=== PATIENT | male | born 1960 | race Caucasian/White ===

== ENCOUNTER 2024-01-19 08:54 | Outpatient (RCR) | payer MEDICARE, BC, SELFPAY | END 2024-01-19 10:00 | disposition home or self-care (01) | PROVIDERS: Visit Provider Orthopaedic Surgery | DX: M17.11 Unilateral primary osteoarthritis, right knee (principal); Z96.651 Presence of right artificial knee joint; M25.561 Pain in right knee; Z74.09 Other reduced mobility; R29.898 Other symptoms and signs involving the musculoskeletal system; Z51.89 Encounter for other specified aftercare | CPT/HCPCS: 97161; 97535 ==

== ENCOUNTER 2024-02-02 09:27 | Day surgery (SDC) | payer MEDICARE, BC, SELFPAY ==
[2024-02-02] VITALS (24 sets, daily range): BP systolic 122–197; BP diastolic 63–103; PULSE 39–63; RESP 14–16; TEMP 35.1–36.6; O2SAT 91–99; BMI 34.7
--- OUTSIDE RECORDS SUMMARY | 2024-02-02 09:31 | XMS_ITS | Clinical Summary ---
Author Name Unknown Organization [facility] Address [address] [place] [address] Care Team Providers Care Skiver Hand Name Role Phone Chintan Chandler M.D. Primary Care Provider [phone] Source Comments Patient records contain information from all sites at [facility]. For routine questions regarding patient records, call [phone] during business hours, M-F 8:00 AM - 5:00 PM Central Time. Record requests for emergency care only can be directed to [phone] at any time.[facility] Allergies No known active allergies Medications Medication Sig Dispensed Refills Start Date End Date Status co-enzyme Q-10 (for_CO Q-10) 100 mg capsule Take 1 capsule by mouth daily. 0 01/21/2017 Active CYANOCOBALAMIN, VITAMIN B-12, ORAL Take 1 tablet by mouth daily. 0 07/16/2016 Active multivitamin tablet Take 1 tablet by mouth daily. [address] Active aspirin [address] tablet Take 1 tablet (81 mg total) by mouth daily. as directed 120 tablet 3 07/11/2020 Active nitroglycerin (NITROSTAT) 0.4 mg SL tabletIndications: Atherosclerotic Heart Disease Of [place] Coronary Artery Without Angina Pectoris As needed 25 tablet 3 10/16/2020 Active blood-glucose meter,continuous (Dexcom G6 News Videographer) miscIndications:Di abetes Mellitus Type 2 With Other Circulatory Complication (HCC) Test 4 times daily. 1 each 0 12/22/2022 Active ketoconazole (NIZORAL) 2 % cream APPLY TWICE DAILY 60 g 3 01/21/2023 Active insulin aspart U-100 (NovoLOG U-100 Insulin aspart) 100 unit/mL injectionIndicatio ns:Diabetes Mellitus Type 2 (HCC) ADJUST DOSING NEEDED-- UP TO 100 UNITS/ DAY 100 mL 3 10/30/2023 Active Additional Information Patient not taking.Reported on 01/01/2024 atorvastatin (LIPITOR) 80 mg tabletIndications: 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) Take 1 tablet (80 mg total) by mouth at bedtime. 90 tablet 3 10/30/2023 Active apixaban (Eliquis) 5 mg tabletIndications: Stroke (HCC) Take 1 tablet (5 mg total) by mouth 2 (two) times a day. 180 tablet 3 10/30/2023 Active isosorbide mononitrate (IMDUR) 30 mg 24 hr tabletIndications: Atherosclerotic Heart Disease Of [place] Coronary Artery Without Angina Pectoris Take 1 tablet (30 mg total) by mouth daily. 90 tablet 3 10/30/2023 Active losartan (COZAAR) 25 mg tabletIndications: Hypertensive Heart Disease Without Heart Failure Take 1 tablet (25 mg total) by mouth daily. 90 tablet 3 10/30/2023 Active metoprolol succinate (TOPROL-XL) 25 mg 24 hr tabletIndications: Hypertension Essential Primary Take 1 tablet (25 mg total) by mouth daily. Do not crush or chew tablet. 90 tablet 3 10/30/2023 Active blood-glucose transmitter (Dexcom G6 Transmitter) deviceIndications: 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) Test 4 times daily. 1 each 10/30/2023 Active insulin lispro (HumaLOG U-100 Insulin) 100 unit/mL injection Per insulin Pump 100 mL 10/30/2023 Active blood-glucose sensor (Dexcom G6 Sensor) deviceIndications: 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) CHANGE SENSOR EVERY 10 DAYS 9 each 3 01/07/2024 Active blood-glucose sensor (Dexcom G6 Sensor) deviceIndications: 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) CHANGE SENSOR EVERY 10 DAYS 9 each 10/30/2023 Discontinue d(Reorder) Active Problems Problem Noted Date Diagnosed Date Arthroplasty Total Knee Replacement Status Post Left 09/30/2022 Primary Osteoarthritis Knee Right 09/30/2022 Atrial Fibrillation Paroxysmal 11/26/2021 Stenosis Carotid Artery Right 05/13/2021 Diabetes Mellitus Type 2 Wit h Other Circulatory Complication 03/08/2019 Injury Ulnar Nerve Upper Arm Level Right Sequela 01/19/2019 Bypass Coronary Artery Graft Status Post 019 Overview: 12/28/18 CABG (CONROY-LAD, JUDE-OM, SVG-PDA) Atherosclerotic Heart Diseas e Of [place] Coronary Artery Without Angina Pectoris 09/18/2017 Coronary Stent Status Post 11/15/2014 Hypertensive Heart Disease Without Heart Failure 09/30/2013 Overview: HTN [Hypertension] Hyperlipidemia 11/09/2009 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 Blood Pressure Check 01/07/2024 Refill Department of [facility] in [address] [address] Chintan Chandler M.D. Med Refill (Dexcom G6) 01/07/2024 Clinical Communication Department of [facility] in [address] [address] Chintan Chandler M.D. Hypertension 01/05/2024 Orders Only Department of [facility] in [address] [address] Chintan Chandler M.D. 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) (Primary Dx) 01/01/2024 1:00 PM PAYROLL ASSISTANT Office Visit Department of Family [facility] in [address] [address] Chintan Chandler M.D. 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); Atrial Fibrillation Paroxysmal (HCC); Atherosclerotic Heart Disease Of [place] Coronary Artery Without Angina Pectoris; Primary Osteoarthritis Knee Right; Diabetes Mellitus Type 2 (HCC); Hypertensive Heart Disease Without Heart Failure from Last 3 Months Immunizations Name Administration Dates Next Due H1N1 Inj 09/24/2009 HepB, Unspecified 05/13/2021(Deferred: Patient R efused) Influenza high dose QV(65 ye ars or older) (PF) 10/30/2023 Influenza, Unspecified 09/08/2014,09/28/2013 PCV20 09/30/2022 PPSV23(Discontinued) 02/15/2013 RZV (SHINGRIX) 05/13/2021(Deferred: Patient Ref used) SARS-COV-2 (COVID-19) - MODE RNA (12 YEARS AND OLDER) [id number] 10/30/2023 SARS-COV-2 (COVID-19) - MODERNA(Discontinued) 02/01/2021,01/04/2021 SARS-COV-2 (COVID-19) - PFIZ ER BIVALENT TS(Discontinued)(12 YEARS OR OLDER) 09/30/2022 Td (Adult), adsorbed 02/08/2007,08/24/2006 Td Preservative Free (TENIVA C, DECAVAC) 12/13/2019 Tdap 09/07/2023,04/09/2007 Zoster, Unspecified 05/13/2021(Deferred: Other) influenza vaccine quad (FLUZONE/FLUARIX) (6 months and older)(PF) 09/16/2022,11/26/2021,09/14/2020,2018,11/01/2018 Family History Medical History Relation Name Comments Coronary artery bypass grafting Brother Tru Heart failure Brother Tru No Known Problems Daughter 1 No Known Problems Daughter 2 No Known Problems Daughter 3 No Known Problems Daughter 4 No Known Problems Daughter 5 No Known Problems Daughter 6 No Known Problems Daughter 7 Diabetes Father Cancer Mother uterine Diabetes Paternal Grandmother Cancer Sister 1 alpesh No Known Problems Sister 2 No Known Problems Sister 3 No Known Problems Son Relation Name Status Comments Brother Tru Alive Daughter 1 Alive Daughter 2 Alive Daughter 3 Alive Daughter 4 Alive Daughter 5 Alive Daughter 6 Alive Daughter 7 Alive Father Mother Paternal Grandmother Sister 1 alpesh Alive Sister 2 Alive Sister 3 Alive Son Alive Social History Tobacco Use Types Packs/Day Years Used Date Smoking Tobacco: Never Smokeless Tobacco: Never Tobacco Cessation:Counseling Given: Yes Alcohol Use Standard Drinks/Week Comments Not Currently 0 (1 standard drink = 0.6 oz pur e alcohol) rare [facility] Utilities Answer Date Recorded In the past 12 months has e [employer], [employer], oil, or water [employer] threatened to shut off services in your home? No 12/28/2023 Humiliation, Afraid, Rape, and Kick questionnair e Answer Date Recorded Within the last year, have y ou been afraid of your partner or ex-partner? No 11/13/2022 Within the last year, have y ou been humiliated or emotionally abused in other ways by your partner or ex-partner? No Within the last year, have y ou been kicked, hit, slapped, or otherwise physically hurt by your partner or ex-partner? No 11/13/2022 Within the last year, have y ou been raped or forced to have any kind of sexual activity by your partner or ex-partner? No 11/13/2022 Social Connection and Isolat ion Panel [NHANES] Answer Date Recorded In a typical week, how many times do you talk on the phone with family, friends, or neighbors? More than three times a week 11/13/2022 How often do you get togethe r with friends or relatives? Twice a week 11/13/2022 How often do you attend chur or sikhism services? 1 to 4 times per year 11/13/2022 Do you belong to any clubs o r organizations such as restorationist groups, unions, fraternal or athletic groups, or school groups? No 11/13/2022 How often do you attend meet ings of the clubs or organizations you belong to? Never 11/13/2022 Are you , , di vorced, , never , or living with a partner? 11/13/2022 AUDIT-C Answer Date Recorded Q1: How often do you have a drink containing alc ohol? Monthly or less 11/13/2022 Q2: How many drinks containi ng alcohol do you have on a typical day when you are drinking? 1 or 2 11/13/2022 Q3: How often do you have si x or more drinks on one occasion? Never 11/13/2022 Overall Financial Resource Strain (CARDIA) Answe r Date Recorded How hard is it for you to pa y for the very basics like food, housing, medical care, and heating? Not hard at all 11/13/2022 PHQ-2 Answer Date Recorded PHQ-2 Score 0 01/01/2024 [facility] of Occupat ional [facility] - Occupational Stress Questionnaire Answer Date Recorded Do you feel stress - tense, restless, nervous, or anxious, or unable to sleep at night because your mind is troubled all the time - these days? Not at all 11/13/2022 Exercise Vital Sign Answer Date Recorde d On average, how many days pe r week do you engage in moderate to strenuous exercise (like a brisk walk)? 3 days 12/28/2023 On average, how many minutes do you engage in exercise at this level? 20 min 12/28/2023 Hunger Vital Sign Answer Date Recorded Within the past 12 months, y ou worried that your food would run out before you got the money to buy more. Never true 12/28/19 24 Within the past 12 months, t he food you bought just didn't last and you didn't have money to get more. Never true 12/28/2023 PRAPARE - Transportation Answer Date Re corded In the past 12 months, has l ack of transportation kept you from medical appointments or from getting medications? No 01/2024 In the past 12 months, has l ack of transportation kept you from meetings, work, or from getting things needed for daily living? No 12/28/2023 Nutrition Answer Date Recorded Nutrition: EVOO Fat Source Yes 12/27 On average, how many serving s of fruits and vegetables do you eat per day (serving size is equal to 1 cup or approximately the size of a tennis ball)? 0-2 12/28/2023 Dental Answer Date Recorded Dental: Regular Dentist Yes 11/13/19 23 Employment Answer Date Recorded Employment status Employed and actively working without restrictions 12/28/2023 Housing Stability Answer Date Recorded What is your living situation today? I have a [facility] place to live 12/28/2023 Education Answer Date Recorded What is the highest level of school you have completed or the highest degree you have received? Associate degree: occupational, technical, or vocational program 10/12/2020 Sex and Gender Information Value Date Recorded Sex Assigned at Male 09/15/2017 7:45 AM PAYROLL ASSISTANT Gender Identity Male 09/15/2017 7:45 AM PAYROLL ASSISTANT Sexual Orientation Straight 09/15/2017 7: 45 AM PAYROLL ASSISTANT Last Filed Vital Signs Vital Sign Reading Time Taken Comments Blood Pressure 142/58 01/07/2024 10:26 AM CDT manual check Pulse 54 01/07/2024 10:26 AM CDT Temperature 36.4 ??C (97.5 ??F) 01/01/2024 1:02 PM CS T Respiratory Rate 16 09/07/2023 4:59 PM PAYROLL ASSISTANT Oxygen Saturation 99% 01/01/2024 1:02 PM PAYROLL ASSISTANT Inhaled Oxygen Concentration - - Weight 113 kg (250 lb) 01/01/2024 1:02 PM PAYROLL ASSISTANT Height 180.3 cm (5' 10.98) 01/01/2024 1:[address] Body Mass Index 34.88 01/01/2024 1:02 PM PAYROLL ASSISTANT Plan of Treatment Upcoming Encounters Date Type Department Care Team (Late st Contact Info) Description 04/06/2024 8:30 AM CDT Appointment Department of Laboratory Medicine in [place], [place] [address] [place] [address] Chintan Chandler M.D. [address] [place] [address] Health Maintenance Due Date Last Done Comments CT Colonography 1958 FIT 1960 HIV Screening 1960 Hepatitis C Screening 1960 Zoster Vaccines (1 of 2) 2008 Diabetes Education 04/08/2017 10/28/2013 Hepatitis B Vaccines (1 of 3 - Risk 3-dose series) 2018 Colonoscopy 2021 2011 Dilated Eye Exam 05/01/2022 05/01/2021 (Per formed elsewhere), 06/09/2020 (Performed elsewhere), 08/01/2019 (Performed elsewhere), Additional history exists Diabetic Office Visit with F oot Exam 09/30/2023 09/30/2022, 05/13/2021, 11/23/2018, Additional history exists Office Visit for Blood Press ure Check / Re-check 04/08/2024 01/07/2024 Urine Albumin 04/15/2024 04/15/2023, 03/27, 05/10/2021, Additional history exists Hemoglobin A1C 07/03/2024 01/01/2024, 010 12/2023, 04/22/2023, Additional history exists Cologuard 12/18/2024 12/18/2021, 12/10/2021 Colorectal Cancer Screening 12/18/2024 Creatinine Level (Kidney Fun ction Test) 12/31/2024 01/01/2024, 04/15/2023, 04/15/2022, Additional history exists Potassium Level 12/31/2024 01/01/2024, 03/27, 04/15/2022, Additional history exists Sodium Level 12/31/2024 01/01/2024, 03/27, 04/15/2022, Additional history exists Visit: Chronic Disease, age 18+ 12/31/2024 , 01/01/2024 Lipid (Cholesterol) Screening 12/31/2028, 05/10/2021, 12/13/2019, Additional history exists DTaP,Tdap,and Td Vaccines (4 - Td or Tdap) 09/07/2033 09/07/2023, 12/13/2019, 04/09/2007, Additional history exists Pneumococcal vaccine (65+ years) Completed 09/30/20, 02/15/2013 COVID-19 Vaccine Completed 10/30/2023, 03/2022, 10/01/2021, Additional history exists Influenza Vaccine Completed 10/30/2023, , 11/26/2021, Additional history exists Depression Screening (Annual PHQ-2) Completed 01/01/2024, 01/01/2024 Fall Risk Screen (Annual) Completed 01/01/2024 Medical Devices Implanted Type Area Security Systems Administrator Device Identifier Shelf Expiration Date Model / Serial / Lot Cardiac Stent Cardiac Stent Heart Cbl Cls Zipfix Tss Strnl Ndl - [id number] Implanted:Qty : 1 on 12/28/2018 by Deepak Almonte M.D. at [facility] Hardware e.g. pins/screws/ rods Sternum Depuy Synthes 08.501.00 1.20S / / Cbl Cls Zipfix Tss Strnl Ndl - [id number] Implanted:Qty : 1 on 12/28/2018 by eDepak Almonte M.D. at [facility] Hardware e.g. pins/screws/ rods Sternum Depuy Synthes 08.501.00 1.20S / / Cbl Cls Zipfix Tss Strnl Ndl - [id number] Implanted:Qty : 1 on 12/28/2018 by Deepak Almonte M.D. at [facility] Hardware e.g. pins/screws/ rods Sternum Depuy Synthes 08.501.00 1.20S / / Ocular Lens Ocular Lens Bilateral: Eye Procedures Procedure Name Priority Date/Time Associated Diagnosis Comments CBC WITH DIFFERENTIAL, B Routine 024 2:25 PM PAYROLL ASSISTANT Preoperative Exam Atherosclerotic Heart Disease Of [place] Coronary Artery Without Angina Pectoris ECG Routine 01/01/2024 1:57 PM PAYROLL ASSISTANT Preoperative Exam LIPID PANEL, S Routine 01/01/2024 1:46 PM PAYROLL ASSISTANT 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) Atherosclerotic Heart Disease Of [place] Coronary Artery Without Angina Pectoris ALANINE AMINOTRANSFERASE (ALT), S/P Routine 01/01/2024 1:46 PM PAYROLL ASSISTANT Atherosclerotic Heart Disease Of [place] Coronary Artery Without Angina Pectoris BASIC METABOLIC PANEL, S/P Routine 01/01/2024 1:46 PM PAYROLL ASSISTANT Preoperative Exam Atrial Fibrillation Paroxysmal (HCC) Atherosclerotic Heart Disease Of [place] Coronary Artery Without Angina Pectoris HEMOGLOBIN A1C, B Routine 01/01/2024 1:4 6 PM PAYROLL ASSISTANT 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) from Last 3 Months Results * (ABNORMAL) CBC with Differential, Blood (01/01/2024 2:25 PM PAYROLL ASSISTANT) Hemoglobin 14.3 13.2 - 16.6 g/dL 01/01/2024 7:13 PM PAYROLL ASSISTANT NPRG Hematocrit 43.1 38.3 - 48.6 % 01/01/2024 7:13 PM PAYROLL ASSISTANT NPRG Erythrocytes 4.98 4.35 - 5.65 x10(12)/L 01/01/2024 7:13 PM PAYROLL ASSISTANT NPRG MCV 86.5 78.2 - 97.9 fL 01/01/2024 7:13 PM PAYROLL ASSISTANT NPRG RBC Distrib Width 13.9 11.8 - 14.5 % 01/01/2024 7:13 PM PAYROLL ASSISTANT NPRG Platelet Count 231 135 - 317 x10(9)/L 01/01/2024 7:13 PM PAYROLL ASSISTANT NPRG Leukocytes 5.4 3.4 - 9.6 x10(9)/L 01/01/2024 7:13 PM PAYROLL ASSISTANT NPRG Neutrophils 3.94 1.56 - 6.45 x10(9)/L 01/01/2024 7:13 PM PAYROLL ASSISTANT NPRG Lymphocytes 0.75(L) 0.95 - 3.07 x10(9)/L 01/01/2024 7:13 PM PAYROLL ASSISTANT NPRG Monocytes 0.52 0.26 - 0.81 x10(9)/L 01/01/2024 7:13 PM PAYROLL ASSISTANT NPRG Eosinophils 0.11 0.03 - 0.48 x10(9)/L 01/01/2024 7:13 PM PAYROLL ASSISTANT NPRG Basophils 0.04 0.01 - 0.08 x10(9)/L 01/01/2024 7:13 PM PAYROLL ASSISTANT NPRG Blood (Blood, Venous) 01/01/2024 2:25 PM PAYROLL ASSISTANT 01/01/2024 6:49 PM PAYROLL ASSISTANT Chintan Chandler M.D. LAB BLOOD ADD-ON [facility] [address] [place] [address], [facility] NPRG [facility] [address] [place] [address] * ECG 12 Lead (01/01/2024 1:57 PM PAYROLL ASSISTANT) Ventricular Rate ECG/Min 57 BPM MUSE WV Interval 186 ms MUSE QRSD Interval 94 ms MUSE QT Interval 422 ms MUSE QTC Interval 410 ms MUSE P Mathis 24 degrees MUSE R Mathis -42 degrees MUSE T Wave Mathis 45 degrees MUSE 01/01/2024 1:57 PM PAYROLL ASSISTANT 01/01/2024 2:00 PM PAYROLL ASSISTANT Impressions MUSE - 01/01/2024 2:00 PM PAYROLL ASSISTANT Sinus bradycardia with sinus arrhythmia Premature ventricular complexes Left axis deviation When compared with ECG of 13-DEC-2019 09:19, Premature ventricular complexes are now present Reviewed by XOCHILT Escalante Narrative Procedure Note Dre Low M.B.BRosangelaS. - 01/01/2024 IMPRESSION: Sinus bradycardia with sinus arrhythmia Premature ventricular complexes Left axis deviation When compared with ECG of 13-DEC-2019 09:19, Premature ventricular complexes are now present Reviewed by XOCHILT Escalante Chintan Chandler M.D. ECG ORDERABLES MUSE NA * Lipid Panel (01/01/2024 1:46 PM PAYROLL ASSISTANT) Triglycerides 148 mg/dL 01/01/2024 7:23 PM PAYROLL ASSISTANT NPRG Comment: ----REFERENCE VALUE---- Normal: <150 mg/dL Borderline High: 150-199 mg/dL High: 200-499 mg/dL Very High: > or =500 mg/dL Cholesterol, Total 128 mg/dL 2023 7:23 PM PAYROLL ASSISTANT NPRG Comment: ----REFERENCE VALUE---- Desirable: < 200 mg/dL Borderline High: 200 - 239 mg/dL High: > or = 240 mg/dL Cholesterol, LDL, Calculated 61 mg/dL 01/01/2024 7:23 PM PAYROLL ASSISTANT NPRG Comment: ----REFERENCE VALUE---- Desirable: <100 mg/dL Above Desirable: 100-129 mg/dL Borderline High: 130-159 mg/dL High: 160-189 mg/dL Very High: >=190 mg/dL ----ADDITIONAL INFORMATION---- LDL cholesterol calculated using the Bryant/NIH equation. Cholesterol, HDL 41 >=40 mg/dL 01/01/20 7:23 PM PAYROLL ASSISTANT NPRG Cholesterol, Non-HDL, Calculated 87 mg/dL 01/01/2024 7:23 PM PAYROLL ASSISTANT NPRG Comment: ----REFERENCE VALUE---- Desirable: <130 mg/dL Above Desirable: 130-159 mg/dL Borderline High: 160-189 mg/dL High: 190-219 mg/dL Very High: > or =220 mg/dL Fasting (8 HR or more) No 01/01/2024 6:48 PM PAYROLL ASSISTANT NPRG Blood (Blood, Venous) 01/01/2024 1:46 PM PAYROLL ASSISTANT 01/01/2024 6:48 PM PAYROLL ASSISTANT Chintan Chandler M.D. LAB BLOOD ADD-ON [facility] [address] [place] [address], [facility] NPRG [place] [address] [place] [address] * ALT (Alanine Aminotransferase) (01/01/2024 1:46 PM PAYROLL ASSISTANT) [facility] Alanine Aminotransferase (ALT), P 21 7 - 55 U/L 01/01/2024 7:23 PM PAYROLL ASSISTANT NPRG Blood (Blood, Venous) 01/01/2024 1:46 PM PAYROLL ASSISTANT 01/01/2024 6:48 PM PAYROLL ASSISTANT Chintan Chandler M.D. LAB BLOOD ADD-ON [facility] [address] [place] [address], [facility] NPRG [place] [address] [place] [address] * (ABNORMAL) Hemoglobin A1c (01/01/2024 1:46 PM PAYROLL ASSISTANT) Hemoglobin A1c, B 6.6(H) 4.2 - 5.6 % 01/01/2024 7:27 PM PAYROLL ASSISTANT NPRG Comment: Hemoglobin A1c values greater than or equal to 6.5 percent are diagnostic for diabetes mellitus. ??Diagnosis should be confirmed by repeat testing. ??In diabetic patients, HbA1c goals should be discussed with healthcare provider. Blood (Blood, Venous) 01/01/2024 1:46 PM PAYROLL ASSISTANT 01/01/2024 6:48 PM PAYROLL ASSISTANT Chintan Chandler M.D. LAB BLOOD ADD-ON [facility] [address] [place] [address], [place] NPRG [facility] [address] [place] [address] * (ABNORMAL) Basic Metabolic Panel (01/01/2024 1:46 PM PAYROLL ASSISTANT) Potassium, P 4.8 3.6 - 5.2 mmol/L 01/01/2024 7:23 PM PAYROLL ASSISTANT NPRG Sodium, P 139 135 - 145 mmol/L 01/01/2024 7:23 PM PAYROLL ASSISTANT NPRG Chloride, P 104 98 - 107 mmol/L 01/01/2024 7:23 PM PAYROLL ASSISTANT NPRG Bicarbonate, P 25 22 - 29 mmol/L 01/01/2024 7:23 PM PAYROLL ASSISTANT NPRG Anion Gap, P 10 7 - 15 01/01/2024 7:23 PM PAYROLL ASSISTANT NPRG BUN (Blood Urea Nitrogen), P 20 8 - 24 mg/dL 01/01/2024 7:23 PM PAYROLL ASSISTANT NPRG Creatinine 1.21 0.74 - 1.35 mg/dL 01/01/2024 7:23 PM PAYROLL ASSISTANT NPRG Estimated GFR (eGFR) 66 >=60 mL/min/BSA 01/01/2024 7:23 PM PAYROLL ASSISTANT NPRG Comment: Estimated GFR calculated using the 2020 CKD_EPI creatinine equation. Calcium, Total, P 9.0 8.8 - 10.2 mg/dL 01/01/2024 7:23 PM PAYROLL ASSISTANT NPRG Glucose, P 188(H) 70 - 140 mg/dL 01/01/2024 7:23 PM PAYROLL ASSISTANT NPRG Blood (Blood, Venous) 01/01/2024 1:46 PM PAYROLL ASSISTANT 01/01/2024 6:48 PM PAYROLL ASSISTANT Chintan Chandler M.D. LAB BLOOD ADD-ON [facility] [address] [place] [address], [place] NPRG [facility] [address] [place] [address] from Last 3 Months Advance Directives For more information, please contact: [phone] * Full Code (Latest Code Status on File) Date Activated Date Inactivated Comments 01/18/2019 1:03 AM 01/19/2019 3:29 PM Question Answer Comments Full Code: Discussed * Full Code Date Activated Date Inactivated Comments 12/28/2018 6:05 PM 01/04/2019 1:14 PM Question Answer Comments Full Code: Discussed * Full Code Date Activated Date Inactivated Comments 12/01/2018 9:58 AM 12/01/2018 1:51 PM Question Answer Comments Full Code: Discussed Care Teams Skiver Hand Relationship Specialty Start Date End Date Chintan Chandler M.D. [address] [place] [address] PCP - General 04/24/17
--- OUTSIDE RECORDS SUMMARY | 2024-02-02 09:31 | XMS_ITS | Encounter Summary ---
Author Name Unknown Organization [facility] Address [address] [place] [address] Care Team Providers Care Oil Deliverer Name Role Phone Chintan Chandler M.D. Primary Care Provider [phone] Reason for Visit * Reason Onset Date Comments Hypertension 01/07/2024 Encounter Details Date Type Department Care Team (Late st Contact Info) Description 01/07/2024 Clinical Communication Department of Family Medicine in [place], [place] [address] [place] [phone] Chintan Chandler M.D. [address] [place] [phone] Hypertension Social History Tobacco Use Types Packs/Day Years Used Date Smoking Tobacco: Never Smokeless Tobacco: Never Alcohol Use Standard Drinks/Week Comments Not Currently 0 (1 standard drink = 0.6 oz pur e alcohol) rare [facility] Utilities Answer Date Recorded In the past 12 months has e [employer], gas, oil, or water [employer] threatened to shut off services in your [...] 11/13/2022 How often do you attend chur ch or mosque services? 1 to 4 times per year 11/13/2022 Do you belong to any clubs o r organizations such as bahai groups, unions, fraternal or athletic groups, or [...] Answer Date Recorded PHQ-2 Score 0 01/01/2024 [facility] [place] of Occupat ional Health - Occupational Stress Questionnaire Answer Date Recorded [...] money to buy more. Never true 12/28/19 Within the past 12 months, t he [...] Date Recorded Dental: Regular Dentist Yes 11/13/19 Employment Answer Date Recorded Employment status Employed and actively working without restrictions 12/28/2023 Housing Stability Answer Date Recorded What is your living situation today? I have a [facility] place to live 12/28/2023 Education Answer Date Recorded What is the highest level of school you have completed or the highest degree you have received? Associate degree: occupational, technical, or vocational program 10/12/2020 Sex and Gender Information Value Date Recorded Sex Assigned at Male 09/15/2017 7:45 AM MANAGER DOCUMENT CONTROL Gender Identity Male 09/15/2017 7:45 AM MANAGER DOCUMENT CONTROL Sexual Orientation Straight 09/15/2017 7: 45 AM MANAGER DOCUMENT CONTROL documented as of this encounter Miscellaneous Notes * Telephone Encounter - Jeanine Dias R.N. - 01/07/2024 10:31 AM CDT R: Any recommendations to blood pressure or upcoming surgery based on BP today of 142/58 as well asECG results? Does have appointment 01/19/24 S: BP check for f/u on pre-op exam B: BP Readings from Last 3 Encounters: 01/07/24 142/58 01/01/24 153/80 10/30/23 135/62 BP Goal <140/90 Currently taking: Losartan 25mg daily Metoprolol XL 25mg daily Denies SE or HTN related symptoms or concerns. A: Patient had preop done on 01/01/24 for elective right TKA surgery scheduled for 02/02/24. Reports he was advised to recheck BP in clinic. Patient would also like PCP to review ECG results and advise if any concerns. Jeanine Dias RN documented in this encounter Plan of Treatment Upcoming Encounters Date Type Department Care Team (Late st Contact Info) Description 04/06/2024 8:30 AM CDT Appointment Department of Laboratory Medicine in [place] [address] [place] [address] Chintan Chandler M.D. [address] [place] [facility] [place] [phone] documented as of this encounter Visit Diagnoses Not on filedocumented in this encounter Care Teams Oil Deliverer Relationship Specialty Start Date End Date Chintan Chandler M.D. [address] [place] [phone] PCP - General 04/24/17 documented as of this encounter
--- OUTSIDE RECORDS SUMMARY | 2024-02-02 09:31 | XMS_ITS | Encounter Summary ---
Author Name Unknown Organization [facility] Address [address] [place] [address] Care Team Providers Care Cancer Program Director Name Role Phone Chintan Chandler M.D. Primary Care Provider [phone] Reason for Visit * Reason Comments Med Refill Dexcom G6 Encounter Details Date Type Department Care Team (Late st Contact Info) Description 01/07/2024 Refill Department of Family Medicine in [place], [place] [address] [place] [phone] Chintan Chandler M.D. [address] [place] [phone] Med Refill (Dexcom G6) Social History Tobacco Use Types Packs/Day Years Used Date Smoking Tobacco: Never Smokeless Tobacco: Never Alcohol Use Standard Drinks/Week Comments Not Currently 0 (1 standard drink = 0.6 oz pur e alcohol) rare [facility] Utilities Answer Date Recorded In the past 12 months has e [employer], gas, oil, or water [employer] threatened to shut off services in your [...] often do you attend chur ch or muslim services? 1 to 4 times per year 11/13/2022 Do you belong to any clubs o r organizations such as latter day groups, unions, fraternal or athletic groups, or [...] Answer Date Recorded PHQ-2 Score 0 01/01/2024 [facility] of Occupat ional Health - Occupational Stress [...] your living situation today? I have a [facility] place to live 12/28/2023 Education Answer Date Recorded What is the highest level of school you have completed or the highest degree you have received? Associate degree: occupational, technical, or vocational program 10/12/2020 Sex and Gender Information Value Date Recorded Sex Assigned at Male 09/15/2017 7:45 AM WOMEN'S ACTIVITIES ADVISER Gender Identity Male 09/15/2017 7:45 AM WOMEN'S ACTIVITIES ADVISER Sexual Orientation Straight 09/15/2017 7: 45 AM WOMEN'S ACTIVITIES ADVISER documented as of this encounter Miscellaneous Notes * Telephone Encounter - Jeanine Dias, R.N. - 01/07/2024 10:58 AM CDT R: Would you like to send Dexcom G6 to medical supply per request? S: Requesting blood glucose sensor be resent to [facility] B: Dexcom last sent to pharmacy on 10/30/23 for a quantity of 9, 3 refills A: Patient states [facility] needs a new script sent over. Jeanine Dias RN documented in this encounter Plan of Treatment Upcoming Encounters Date Type Department Care Team (Late st Contact Info) Description 04/06/2024 8:30 AM CDT Appointment Department of Laboratory Medicine in [place], [place] [address] [place] [address] Chintan Chandler M.D. 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 [address] [place] [phone] PCP - General 04/24/17 documented as of this encounter
--- OUTSIDE RECORDS SUMMARY | 2024-02-02 09:31 | XMS_ITS | Referral Summary ---
Author Name Unknown Organization [facility] Address [address] [place] [address] Care Team Providers Care Thickener Operator Name Role Phone Chintan Chandler M.D. Primary Care Provider [phone] Source Comments Patient records contain information from all sites at [facility]. For routine questions regarding patient records, call [phone] during business hours, M-F 8:00 AM - 5:00 PM Central Time. Record requests for emergency care only can be directed to [phone] at any time.[facility] Encounters Date Type Department Care Team Description 01/07/2024 Refill Department of Family Medicine in [place], [place] [address] [place] [phone] Chintan Chandler M.D. Med Refill (Dexcom G6) 01/07/2024 Clinical Communication Department of Family Medicine in [place], [place] [address] [place] [phone] Chintan Chandler M.D. Hypertension 01/07/2024 10:15 AM CDT Nurse Only Department of Family Medicine in [place], [place] [address] [place] [phone] Jeanine Dias, REmily Blood Pressure Check 01/05/2024 Orders Only Department of Family Medicine in [place], [place] [address] [place] [phone] Ramesh, Chintan J, M.D. 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); Atrial Fibrillation Paroxysmal (HCC); Atherosclerotic Heart Disease Of [place] Coronary Artery Without Angina Pectoris; Primary Osteoarthritis Knee Right; Diabetes Mellitus Type 2 (HCC); Hypertensive Heart Disease Without Heart Failure from Last 3 Months Allergies No known active allergies Medications Medication [...] mg SL tabletIndications: Atherosclerotic Heart Disease Of [place] Coronary Artery Without Angina Pectoris As needed 25 tablet 3 10/16/2020 Active blood-glucose meter,continuous (Dexcom G6 Engine Test Cell Technician) miscIndications:Di abetes Mellitus Type 2 With Other [...] 24 hr tabletIndications: Atherosclerotic Heart Disease Of [place] Coronary Artery Without Angina Pectoris Take 1 [...] (HCC) Test 4 times daily. 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) CHANGE SENSOR EVERY 10 DAYS 9 each 3 10/30/2023 4 Discontinue d(Reorder) Active Problems Problem Noted Date [...] JUDE-OM, SVG-PDA) Atherosclerotic Heart Diseas e Of [place] Coronary Artery Without Angina Pectoris 09/18/2017 Coronary Stent Status Post 11/15/2014 Hypertensive Heart Disease Without Heart Failure 09/30/2013 Overview: HTN [Hypertension] Hyperlipidemia 11/09/2009 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 Resolved Problems Problem Noted Date Diagnosed Date Resolved Date Stroke 01/17/2019 12/13/2019 Failure Renal Acute Toxic 01/12/2019 Injury Brain Initial 11/09/2009 020 Overview: Traumatic brain injury Immunizations Name Administration Dates Next Due H1N1 Inj 09/24/2009 HepB, Unspecified 05/13/2021(Deferred: Patient R efused) Influenza high dose QV(65 ye ars or older) (PF) 10/30/2023 Influenza, Unspecified 09/08/2014,09/28/2013 PCV20 09/30/2022 PPSV23(Discontinued) 02/15/2013 RZV (SHINGRIX) 05/13/2021(Deferred: Patient Ref used) SARS-COV-2 (COVID-19) - MODE RNA (12 YEARS AND OLDER) [id number] 10/30/2023 SARS-COV-2 (COVID-19) - MODERNA(Discontinued) 02/01/2021,01/04/2021 SARS-COV-2 (COVID-19) - PFIZ ER BIVALENT TS(Discontinued)(12 YEARS OR OLDER) 09/30/2022 Td (Adult), adsorbed 02/08/2007,08/24/2006 Td Preservative Free (TENIVA C, DECAVAC) 12/13/2019 Tdap 09/07/2023,04/09/2007 Zoster, Unspecified 05/13/2021(Deferred: Other) influenza vaccine quad (FLUZONE/FLUARIX) (6 months and older)(PF) 09/16/2022,11/26/2021,09/14/2020,2018,11/01/2018 Social History Tobacco Use Types Packs/Day Years Used Date Smoking Tobacco: Never Smokeless Tobacco: Never Tobacco Cessation:Counseling Given: Yes Alcohol Use Standard Drinks/Week Comments Not Currently 0 (1 standard drink = 0.6 oz pur e alcohol) rare [facility] Utilities Answer Date Recorded In the past 12 months has e [employer], gas, oil, or water company threatened to shut off services in your [...] week 11/13/2022 How often do you attend [facility] or [facility] services? 1 to 4 times per year 11/13/2022 Do you belong to any clubs o r organizations such as mosque groups, unions, fraternal or athletic groups, or [...] Answer Date Recorded PHQ-2 Score 0 01/01/2024 [facility] [place] of Occupat ional Health - Occupational Stress [...] your living situation today? I have a [facility] place to live 12/28/2023 Education Answer Date Recorded What is the highest level of school you have completed or the highest degree you have received? Associate degree: occupational, technical, or vocational program 10/12/2020 Sex and Gender Information Value Date Recorded Sex Assigned at Male 09/15/2017 7:45 AM DAIRY QUALITY ASSURANCE OFFICER Gender Identity Male 09/15/2017 7:45 AM DAIRY QUALITY ASSURANCE OFFICER Sexual Orientation Straight 09/15/2017 7: 45 AM DAIRY QUALITY ASSURANCE OFFICER Last Filed Vital Signs Vital Sign Reading Time Taken Comments Blood Pressure 142/58 01/07/2024 10:26 AM CDT manual check Pulse 54 01/07/2024 10:26 AM CDT Temperature 36.4 ??C (97.5 ??F) 01/01/2024 1:02 PM CS T Respiratory Rate 16 09/07/2023 4:59 PM DAIRY QUALITY ASSURANCE OFFICER Oxygen Saturation 99% 01/01/2024 1:02 PM DAIRY QUALITY ASSURANCE OFFICER Inhaled Oxygen Concentration - - Weight 113 kg (250 lb) 01/01/2024 1:02 PM DAIRY QUALITY ASSURANCE OFFICER Height 180.3 cm (5' 10.98) 01/01/2024 1:[address] Body Mass Index 34.88 01/01/2024 1:02 PM DAIRY QUALITY ASSURANCE OFFICER Plan of Treatment Upcoming Encounters Date Type Department Care Team (Late st Contact Info) Description 04/06/2024 8:30 AM CDT Appointment Department of Laboratory Medicine in [place], [place] [address] [place] [address] Chintan Chandler M.D. [address] [place] [phone] Medical Devices Implanted Type Area Poultry Tender Device Identifier Shelf Expiration Date Model / Serial / Lot Cardiac Stent Cardiac Stent Heart Cbl Cls Zipfix Tss Strnl Ndl - [id number] Implanted:Qty : 1 on 12/28/2018 by Deepak Almonte M.D. at [facility] Hardware e.g. pins/screws/ rods Sternum Depuy Synthes 1.20S / / Cbl Cls Zipfix Tss Strnl Ndl - [id number] Implanted:Qty : 1 on 12/28/2018 by Deepak Almonte M.D. at [facility] Hardware e.g. pins/screws/ rods Sternum Depuy Synthes 1.20S / / Cbl Cls Zipfix Tss Strnl Ndl - [id number] Implanted:Qty : 1 on 12/28/2018 by Deepak Almonte M.D. at [facility] Hardware e.g. 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 ALANINE AMINOTRANSFERASE (ALT), S/P Routine 01/01/2024 1:46 PM DAIRY QUALITY ASSURANCE OFFICER Atherosclerotic Heart Disease Of [place] Coronary Artery Without Angina Pectoris BASIC METABOLIC PANEL, S/P Routine 01/01/2024 1:46 PM DAIRY QUALITY ASSURANCE OFFICER Preoperative Exam Atrial Fibrillation Paroxysmal (HCC) Atherosclerotic Heart Disease Of [place] Coronary Artery Without Angina Pectoris HEMOGLOBIN A1C, B Routine 01/01/2024 1:4 6 PM DAIRY QUALITY ASSURANCE OFFICER 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) from Last 3 Months Results * (ABNORMAL) CBC with Differential, Blood (01/01/2024 2:25 PM DAIRY QUALITY ASSURANCE OFFICER) Pathologist [facility] Hemoglobin 14.3 13.2 - 16.6 g/dL 01/01/2024 7:13 PM DAIRY QUALITY ASSURANCE OFFICER NPRG Hematocrit 43.1 38.3 - 48.6 % 01/01/2024 7:13 PM DAIRY QUALITY ASSURANCE OFFICER NPRG Erythrocytes 4.98 4.35 - 5.65 x10(12)/L 01/01/2024 7:13 PM DAIRY QUALITY ASSURANCE OFFICER NPRG MCV 86.5 78.2 - 97.9 fL 01/01/2024 7:13 PM DAIRY QUALITY ASSURANCE OFFICER NPRG RBC Distrib Width 13.9 11.8 - 14.5 % 01/01/2024 7:13 PM DAIRY QUALITY ASSURANCE OFFICER NPRG Platelet Count 231 135 - 317 x10(9)/L 01/01/2024 7:13 PM DAIRY QUALITY ASSURANCE OFFICER NPRG Leukocytes 5.4 3.4 - 9.6 x10(9)/L 01/01/2024 7:13 PM DAIRY QUALITY ASSURANCE OFFICER NPRG Neutrophils 3.94 1.56 - 6.45 x10(9)/L 01/01/2024 7:13 PM DAIRY QUALITY ASSURANCE OFFICER NPRG Lymphocytes 0.75(L) 0.95 - 3.07 x10(9)/L 01/01/2024 7:13 PM DAIRY QUALITY ASSURANCE OFFICER NPRG Monocytes 0.52 0.26 - 0.81 x10(9)/L 01/01/2024 7:13 PM DAIRY QUALITY ASSURANCE OFFICER NPRG Eosinophils 0.11 0.03 - 0.48 x10(9)/L 01/01/2024 7:13 PM DAIRY QUALITY ASSURANCE OFFICER NPRG Basophils 0.04 0.01 - 0.08 x10(9)/L 01/01/2024 7:13 PM DAIRY QUALITY ASSURANCE OFFICER NPRG Blood (Blood, Venous) 01/01/2024 2:25 PM DAIRY QUALITY ASSURANCE OFFICER 01/01/2024 6:49 PM DAIRY QUALITY ASSURANCE OFFICER Chintan Chandler M.D. LAB BLOOD ADD-ON [facility] [address] [place] [address], [facility] NPRG [facility] [address] [place] [address] * ECG 12 Lead (01/01/2024 1:57 PM DAIRY QUALITY ASSURANCE OFFICER) Ventricular Rate ECG/Min 57 BPM MUSE DE Interval 186 ms MUSE QRSD Interval 94 ms MUSE QT Interval 422 ms MUSE QTC Interval 410 ms MUSE P [place] 24 degrees MUSE R [place] -42 degrees MUSE T Wave [place] 45 degrees MUSE 01/01/2024 1:57 PM DAIRY QUALITY ASSURANCE OFFICER 01/01/2024 2:00 PM DAIRY QUALITY ASSURANCE OFFICER Impressions MUSE - 01/01/2024 2:00 PM DAIRY QUALITY ASSURANCE OFFICER Sinus bradycardia with sinus arrhythmia Premature ventricular complexes Left axis deviation When compared with ECG of 13-DEC-2019 09:19, Premature ventricular complexes are now present Reviewed by XOCHILT Escalante Narrative Procedure Note Dre Low M.B.B.SRosangela - 01/01/2024 IMPRESSION: Sinus bradycardia with sinus arrhythmia Premature ventricular complexes Left axis deviation When compared with ECG of 13-DEC-2019 09:19, Premature ventricular complexes are now present Reviewed by XOCHILT Escalante Chintan Chandler M.D. ECG ORDERABLES MUSE NA * Lipid Panel (01/01/2024 1:46 PM DAIRY QUALITY ASSURANCE OFFICER) Triglycerides 148 mg/dL 01/01/2024 7:23 PM DAIRY QUALITY ASSURANCE OFFICER NPRG Comment: ----REFERENCE VALUE---- Normal: <150 mg/dL Borderline High: 150-199 mg/dL High: 200-499 mg/dL Very High: > or =500 mg/dL Cholesterol, Total 128 mg/dL 2023 7:23 PM DAIRY QUALITY ASSURANCE OFFICER NPRG Comment: ----REFERENCE VALUE---- Desirable: < 200 mg/dL Borderline High: 200 - 239 mg/dL High: > or = 240 mg/dL Cholesterol, LDL, Calculated 61 mg/dL 01/01/2024 7:23 PM DAIRY QUALITY ASSURANCE OFFICER NPRG Comment: ----REFERENCE VALUE---- Desirable: <100 mg/dL Above Desirable: 100-129 mg/dL Borderline High: 130-159 mg/dL High: 160-189 mg/dL Very High: >=190 mg/dL ----ADDITIONAL INFORMATION---- LDL cholesterol calculated using the Bryant/NIH equation. Cholesterol, HDL 41 >=40 mg/dL 01/01/20 7:23 PM DAIRY QUALITY ASSURANCE OFFICER NPRG Cholesterol, Non-HDL, Calculated 87 mg/dL 01/01/2024 7:23 PM DAIRY QUALITY ASSURANCE OFFICER NPRG Comment: ----REFERENCE VALUE---- Desirable: <130 mg/dL Above Desirable: 130-159 mg/dL Borderline High: 160-189 mg/dL High: 190-219 mg/dL Very High: > or =220 mg/dL Fasting (8 HR or more) No 01/01/2024 6:48 PM DAIRY QUALITY ASSURANCE OFFICER NPRG Blood (Blood, Venous) 01/01/2024 1:46 PM DAIRY QUALITY ASSURANCE OFFICER 01/01/2024 6:48 PM DAIRY QUALITY ASSURANCE OFFICER Chintan Chandler M.D. LAB BLOOD ADD-ON [facility] [address] [place] [address], [facility] NPRG [place] [address] [place] [address] * ALT (Alanine Aminotransferase) (01/01/2024 1:46 PM DAIRY QUALITY ASSURANCE OFFICER) Alanine Aminotransferase (ALT), P 21 7 - 55 U/L 01/01/2024 7:23 PM DAIRY QUALITY ASSURANCE OFFICER NPRG Blood (Blood, Venous) 01/01/2024 1:46 PM DAIRY QUALITY ASSURANCE OFFICER 01/01/2024 6:48 PM DAIRY QUALITY ASSURANCE OFFICER Chintan Chandler M.D. LAB BLOOD ADD-ON [facility] [address] [place] [address], [facility] NPRG [address] [address] * (ABNORMAL) Hemoglobin A1c (01/01/2024 1:46 PM DAIRY QUALITY ASSURANCE OFFICER) Hemoglobin A1c, B 6.6(H) 4.2 - 5.6 % 01/01/2024 7:27 PM DAIRY QUALITY ASSURANCE OFFICER NPRG Comment: Hemoglobin A1c values greater than or equal to 6.5 percent are diagnostic for diabetes mellitus. ??Diagnosis should be confirmed by repeat testing. ??In diabetic patients, HbA1c goals should be discussed with healthcare provider. Blood (Blood, Venous) 01/01/2024 1:46 PM DAIRY QUALITY ASSURANCE OFFICER 01/01/2024 6:48 PM DAIRY QUALITY ASSURANCE OFFICER Chintan Chandler M.D. LAB BLOOD ADD-ON [facility] [address] [place] [address], [facility] NPRG [place] [address] [place] [address] * (ABNORMAL) Basic Metabolic Panel (01/01/2024 1:46 PM DAIRY QUALITY ASSURANCE OFFICER) Potassium, P 4.8 3.6 - 5.2 mmol/L 01/01/2024 7:23 PM DAIRY QUALITY ASSURANCE OFFICER NPRG Sodium, P 139 135 - 145 mmol/L 01/01/2024 7:23 PM DAIRY QUALITY ASSURANCE OFFICER NPRG Chloride, P 104 98 - 107 mmol/L 01/01/2024 7:23 PM DAIRY QUALITY ASSURANCE OFFICER NPRG Bicarbonate, P 25 22 - 29 mmol/L 01/01/2024 7:23 PM DAIRY QUALITY ASSURANCE OFFICER NPRG Anion Gap, P 10 7 - 15 01/01/2024 7:23 PM DAIRY QUALITY ASSURANCE OFFICER NPRG BUN (Blood Urea Nitrogen), P 20 8 - 24 mg/dL 01/01/2024 7:23 PM DAIRY QUALITY ASSURANCE OFFICER NPRG Creatinine 1.21 0.74 - 1.35 mg/dL 01/01/2024 7:23 PM DAIRY QUALITY ASSURANCE OFFICER NPRG Estimated GFR (eGFR) 66 >=60 mL/min/BSA 01/01/2024 7:23 PM DAIRY QUALITY ASSURANCE OFFICER NPRG Comment: Estimated GFR calculated using the 2020 CKD_EPI creatinine equation. Calcium, Total, P 9.0 8.8 - 10.2 mg/dL 01/01/2024 7:23 PM DAIRY QUALITY ASSURANCE OFFICER NPRG Glucose, P 188(H) 70 - 140 mg/dL 01/01/2024 7:23 PM DAIRY QUALITY ASSURANCE OFFICER NPRG Blood (Blood, Venous) 01/01/2024 1:46 PM DAIRY QUALITY ASSURANCE OFFICER 01/01/2024 6:48 PM DAIRY QUALITY ASSURANCE OFFICER Chintan Chandler M.D. LAB BLOOD ADD-ON [facility] [address] [place] [address], [facility] NPRG [facility] [address] [place] [address] from Last 3 Months Advance Directives For more information, please contact: [phone] * Full Code (Latest Code Status on [...] Answer Comments Full Code: Discussed Care Teams Thickener Operator Relationship Specialty Start Date End Date Chintan Chandler [place] [address] PCP - General 04/24/17
--- OUTSIDE RECORDS SUMMARY | 2024-02-02 09:31 | XMS_ITS | Encounter Summary ---
Author Name Unknown Organization [facility] Address [address] [place] [address] Care Team Providers Care Pain Management Physician Name Role Phone Chintan Chandler M.D. Primary Care Provider [phone] Reason for Visit * Reason Comments Blood Pressure Check Encounter Details Date Type Department Care Team (Late st Contact Info) Description 01/07/2024 10:15 AM CDT Nurse Only Department of Family Medicine in [place], [place] [address] [place] [phone] Jeanine Dias, R.N. Blood Pressure Check Social History Tobacco Use Types Packs/Day Years Used Date Smoking Tobacco: Never Smokeless Tobacco: Never Alcohol Use Standard Drinks/Week Comments Not Currently 0 (1 standard drink = 0.6 oz pur e alcohol) rare [facility] Utilities Answer Date Recorded In the past 12 months has [facility] [employer], gas, oil, or water [employer] threatened to shut off services in your [...] week 11/13/2022 How often do you attend [facility] or sabianist services? 1 to 4 times per year 11/13/2022 Do you belong to any clubs o r organizations such as samaritan groups, unions, fraternal or athletic groups, or [...] Answer Date Recorded PHQ-2 Score 0 01/01/2024 [facility] [place] of Occupat ional Health - Occupational Stress [...] your living situation today? I have a [facility] place to live 12/28/2023 Education Answer Date Recorded What is the highest level of school you have completed or the highest degree you have received? Associate degree: occupational, technical, or vocational program 10/12/2020 Sex and Gender Information Value Date Recorded Sex Assigned at Male 09/15/2017 7:45 AM NURSE MONITORING Gender Identity Male 09/15/2017 7:45 AM NURSE MONITORING Sexual Orientation Straight 09/15/2017 7: 45 AM NURSE MONITORING documented as of this encounter Last Filed Vital Signs Vital Sign Reading Time Taken Comments Blood Pressure 142/58 01/07/2024 10:26 AM CDT ma nual check Pulse 54 01/07/2024 10:26 AM CDT Temperature - - Respiratory Rate - - Oxygen Saturation - - Inhaled Oxygen Concentration - - Weight - - Height - - Body Mass Index - - documented in this encounter Progress Notes * Jeanine Dias, R.N. - 01/07/2024 10:15 AM CDT REASON FOR VISIT Raman is seen today for a BP check after BP was elevated on OV on 01/01/24 wit PCP, walk in blood pressure check. Visit was conducted in clinic. OBJECTIVE After sitting for 10 minutes, blood pressure was measured and recorded. The patient's blood pressure(s) and pulse from this visit encounter: Vitals: 01/07/24 1026 BP: 142/58 Comment: manual check BP Location: Left arm Patient Position: Sitting Cuff Size: Large Pulse: (!) 54 The patient's last 3 blood pressures from previous 3 encounters: BP Readings from Last 3 Encounters: 01/07/24 142/58 01/01/24 153/80 10/30/23 135/62 Pulse Readings from Last 3 Encounters: 01/07/24 (!) 54 01/01/24 (!) 55 10/30/23 (!) 56 Patient's blood pressure goal is less than 140/90. Current antihypertensives are: Anti-Hypertensives losartan (COZAAR) 25 mg tablet Take 1 tablet (25 mg total) by mouth daily. metoprolol succinate (TOPROL-XL) 25 mg 24 hr tablet Take 1 tablet (25 mg total) by mouth daily. Do not crush or chew tablet. Medication list was reviewed and patient is taking their blood pressure medication as prescribed and denies side effects. PLAN 1. Message sent to provider with update of blood pressure result from today's visit. Has surgery scheduled for 02/02/24 and needs the OK to proceed with surgery as planned. Next appointment in this department: 01/19/2024 Jeanine Dias RN documented in this encounter Plan of Treatment Upcoming Encounters Date Type Department Care Team (Late st Contact Info) Description 04/06/2024 8:30 AM CDT Appointment Department of Laboratory Medicine in [place], [place] [address] [place] [address] Chintan Chandler M.D. [address] [place] [phone] documented as of this encounter Visit Diagnoses Not on filedocumented in this encounter Care Teams Pain Management Physician Relationship Specialty Start Date End Date Chintan Chandler M.D. [address] [place] [phone] PCP - General 04/24/17 documented as of this encounter
--- OUTSIDE RECORDS SUMMARY | 2024-02-02 09:31 | XMS_ITS ---
Author Name Unknown Organization [facility] Address [address] [place] [address] Care Team Providers Care Trapeze Performer Name Role Phone Unavailable Unavailable Unavailable Surgery Details Not on file Complications Check Surgery Details section. Procedure Estimated Blood Loss Check Surgery Details section. Procedure Findings Check Surgery Details section. Procedure Specimens Taken Check Surgery Details section.
--- OUTSIDE RECORDS SUMMARY | 2024-02-02 09:32 | XMS_ITS | Encounter Summary ---
Author Name Unknown Organization [facility] Address [address] [place] [address] Care Team Providers Care Pasting Machine Operator Name Role Phone Chintan Chandler M.D. Primary Care Provider [phone] Encounter Details Date Type Department Care Team (Late st Contact Info) Description 01/05/2024 Orders Only Department of Family Medicine in [place], [place] [address] [place] [phone] Chintan Chandler M.D. 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 1 to 4 times per year 11/13/2022 Do you belong to any clubs o r organizations such as yazdanism groups, unions, fraternal or athletic groups, or [...] Answer Date Recorded PHQ-2 Score 0 01/01/2024 [facility] of Occupat ional Health - Occupational Stress [...] your living situation today? I have a [facility] place to live 12/28/2023 Education Answer Date Recorded What is the highest level of school you have completed or the highest degree you have received? Associate degree: occupational, technical, or vocational program 10/12/2020 Sex and Gender Information Value Date Recorded Sex Assigned at Male 09/15/2017 7:45 AM ORACLE ENDECA CONSULTANT Gender Identity Male 09/15/2017 7:45 AM ORACLE ENDECA CONSULTANT Sexual Orientation Straight 09/15/2017 7: 45 AM ORACLE ENDECA CONSULTANT documented as of this encounter Plan of Treatment Upcoming Encounters Date Type Department Care Team (Late st Contact Info) Description 04/06/2024 8:30 AM CDT Appointment Department of Laboratory Medicine in [place], [place] [address] [place] [phone] Chintan Chandler M.D. [address] [place] [phone] Scheduled Orders Name Type Priority Associated Diagnoses Orde r Schedule Hemoglobin A1c Lab Routine 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) Expected: 04/06/2024 (Approximate), Expires: 01/04/2025 documented as of this encounter Visit Diagnoses Diagnosis 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)- Primary documented in this encounter Care Teams Pasting Machine Operator Relationship Specialty Start Date End Date Chintan Chandler M.D. [address] [place] [phone] PCP - General 04/24/17 documented as of this encounter
--- OUTSIDE RECORDS SUMMARY | 2024-02-02 09:32 | XMS_ITS | Encounter Summary ---
Author Name Unknown Organization [facility] Address [address] [place] [address] Care Team Providers Care Local Superintendent Name Role Phone Chintan Chandler M.D. Primary Care Provider [phone] Reason for Visit * Reason Comments Diabetes * Appointment Request (Routine) - Closed Specialty Diagnoses / Procedures Referred By Contac t Referred To Contact Family Medicine Referral ID Status Reason Start Date Expiration Date Visits Re quested Visits Authorized [id number] Closed 10/23/2023 10/22/2024 1 1 Encounter Details Date Type Department Care Team (Late st Contact Info) Description 10/30/2023 2:00 PM RUG MEASURER Office Visit Department of Family Medicine in [place], [place] [address] [place] [address] Chintan Chandler M.D. 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 1 to 4 times per year 11/13/2022 Do you belong to any clubs o r organizations such as spiritism groups, unions, fraternal or athletic groups, or [...] PHQ-2 Answer Date Recorded PHQ-2 Score 0 01/20/2023 [facility] of Occupat ional Health - Occupational [...] exercise (like a brisk walk)? 3 days 11/13/2022 On average, how many minutes do you engage in exercise at this level? 20 min 11/13/2022 Hunger Vital Sign Answer Date Recorded Within the past 12 months, y ou worried that your food would run out before you got the money to buy more. Never true 11/13/19 Within the past 12 months, t he food you bought just didn't last and you didn't have money to get more. Never true 11/13/2022 PRAPARE - Transportation Answer Date Re corded In the past 12 months, has l ack of transportation kept you from medical appointments or from getting medications? No 10/26 In the past 12 months, has l ack of transportation kept you from meetings, work, or from getting things needed for daily living? No 11/13/2022 Housing Stability Vital Sign Answer Mehdi e Recorded In the last 12 months, was t here a time when you were not able to pay the mortgage or rent on time? No 11/13/2022 In the last 12 months, how many places have you lived? 1 11/13/2022 In the last 12 months, was t here a time when you did not have a steady place to sleep or slept in a retirement (including now)? No 11/13/2022 Nutrition Answer Date Recorded Nutrition: EVOO Fat Source Yes 11/13 On average, how many serving s of fruits and vegetables do you eat per day (serving size is equal to 1 cup or approximately the size of a tennis ball)? 2-3 11/13/2022 Dental Answer Date Recorded Dental: Regular Dentist Yes 11/13/19 Employment Answer Date Recorded Employment status Employed and actively working without restrictions 11/13/2022 Education Answer Date Recorded What is the highest level of school you have completed or the highest degree you have received? Associate degree: occupational, technical, or vocational program 10/12/2020 Sex and Gender Information Value Date Recorded Sex Assigned at Male 09/15/2017 7:45 AM RUG MEASURER Gender Identity Male 09/15/2017 7:45 AM RUG MEASURER Sexual Orientation Straight 09/15/2017 7: 45 AM RUG MEASURER documented as of this encounter Last Filed Vital Signs Vital Sign Reading Time Taken Comments Blood Pressure 135/62 10/30/2023 1:46 PM RUG MEASURER Pulse 56 10/30/2023 1:46 PM RUG MEASURER Temperature 36.2 ??C (97.1 ??F) 10/30/2023 1:46 PM CS T Respiratory Rate - - Oxygen Saturation 99% 10/30/2023 1:46 PM RUG MEASURER Inhaled Oxygen Concentration - - Weight 111 kg (244 lb) 10/30/2023 1:46 PM RUG MEASURER Height 180.3 cm (5' 10.98) 10/30/2023 1:[address] Body Mass Index 34.05 10/30/2023 1:46 PM RUG MEASURER documented in this encounter Progress Notes * Chintan Chandler M.D. - 10/30/2023 2:00 PM CST SUBJECTIVE CHIEF COMPLAINT/REASON FOR VISIT Chief Complaint Patient presents with Diabetes HISTORY OF PRESENT ILLNESS Raman Adame is a 63 y.o. male who presents for a routine diabetes recheck. No major changes in health noted since his last exam. He reports good tolerance for all current medications. The following portions of the patient's history were reviewed: allergies, medical history, current medications and problem list REVIEW OF SYSTEMS All other systems are negative. OBJECTIVE VITAL SIGNS BP 135/62 (Cuff Size: Large) Pulse (!) 56 Temp 36.2 ??C (Temporal) Ht 180.3 cm Wt 111 kg SpO2 99% BMI 34.05 kg/m?? PHYSICAL EXAMINATION General: Alert, in no apparent distress, nontoxic appearing. Mood and affect were appropriate to the situation. HEENT: No pallor or icterus. Conjunctivae and sclerae clear without redness or drainage. Heart: Regular rate and rhythm. Lungs: Respirations were regular, nonlabored. Skin: [place], warm, dry and intact with no rashes noted. DIAGNOSTICS Lab Results Component Value Date HGBA1C 6.8 (H) 10/28/2023 HGBA1C 6.3 (H) 04/22/2023 HGBA1C 6.6 (H) 12/30/2022 Lab Results Component Value Date GLUCOSE 196 (H) 04/15/2023 GLUCOSEPOC 131 01/19/2019 ALBCREARATIO 53 (H) 04/15/2023 LDLCALC 58 05/10/2021 CREATININE 1.10 04/15/2023 CREATPOC 1.1 05/18/2019 CREATJAFFE 1.5 (H) 01/01/2019 ASSESSMENT / PLAN 1. Diabetes Mellitus Type 2 (HCC) Excellent diabetes control on current program. Plan to continue with routine 3 month A1C recheck. Also at next check he will need routine labs to include BMP, ALT and lipid profile. - insulin aspart U-100 (NovoLOG U-100 Insulin aspart) 100 unit/mL injection; ADJUST DOSING NEEDED-- UP TO 100 UNITS/ DAY Dispense: 100 mL; Refill: 3 2. 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 Dispense: 90 tablet; Refill: 3 - blood-glucose sensor (Dexcom G6 Sensor) device; CHANGE SENSOR EVERY 10 DAYS Dispense: 9 each; Refill: 3 - blood-glucose transmitter (Dexcom G6 Transmitter) device; Test 4 times daily. Dispense: 1 each; Refill: 3 3. Stroke (HCC) Stable diagnosis. No new symptoms and treatment is well tolerated. No new evaluation needed and plan for yearly recheck. - apixaban (Eliquis) 5 mg tablet; Take 1 tablet (5 mg total) by mouth 2 (two) times a day. Dispense: 180 tablet; Refill: 3 4. Atherosclerotic Heart Disease Of [place] Coronary Artery Without Angina Pectoris Negative review for new ischemic symptoms. Current medications are well tolerated and he is actively followed by Cardiology. Plan for annual recheck. - isosorbide mononitrate (IMDUR) 30 mg 24 hr tablet; Take 1 tablet (30 mg total) by mouth daily. Dispense: 90 tablet; Refill: 3 5. Hypertensive Heart Disease Without Heart Failure Very good blood pressure control on current treatment plan. No changes recommended. - losartan (COZAAR) 25 mg tablet; Take 1 tablet (25 mg total) by mouth daily. Dispense: 90 tablet; Refill: 3 - metoprolol succinate (TOPROL-XL) 25 mg 24 hr tablet; Take 1 tablet (25 mg total) by mouth daily. Do not crush or chew tablet. Dispense: 90 tablet; Refill: 3 7. Atrial Fibrillation Paroxysmal (HCC) No recurrence. Regular rhythm today and no new treatment or evaluation needed. Plan for annual recheck. MEASURER documented in this encounter Plan of Treatment Upcoming Encounters Date Type Department Care Team (Late st Contact Info) Description 04/06/2024 8:30 AM CDT Appointment Department of Laboratory Medicine in [place], [place] [address] [place] [phone] Chintan Chandler M.D. [address] [place] [phone] documented as of this encounter Results * ALT (Alanine Aminotransferase) (01/01/2024 1:46 PM RUG MEASURER) Alanine Aminotransferase (ALT), P 21 7 - 55 U/L 01/01/2024 7:23 PM RUG MEASURER NPRG Blood (Blood, Venous) 01/01/2024 1:46 PM RUG MEASURER 01/01/2024 6:48 PM RUG MEASURER Chintan Chandler M.D. LAB BLOOD ADD-ON [facility] [address] [place] [address], [facility] NPRG [facility] [address] [place] [address] * Lipid Panel (01/01/2024 1:46 PM RUG MEASURER) Triglycerides 148 mg/dL 01/01/2024 7:23 PM RUG MEASURER NPRG Comment: ----REFERENCE VALUE---- Normal: <150 mg/dL Borderline High: 150-199 mg/dL High: 200-499 mg/dL Very High: > or =500 mg/dL Cholesterol, Total 128 mg/dL 2023 7:23 PM RUG MEASURER NPRG Comment: ----REFERENCE VALUE---- Desirable: < 200 mg/dL Borderline High: 200 - 239 mg/dL High: > or = 240 mg/dL Cholesterol, LDL, Calculated 61 mg/dL 01/01/2024 7:23 PM RUG MEASURER NPRG Comment: ----REFERENCE VALUE---- Desirable: <100 mg/dL Above Desirable: 100-129 mg/dL Borderline High: 130-159 mg/dL High: 160-189 mg/dL Very High: >=190 mg/dL ----ADDITIONAL INFORMATION---- LDL cholesterol calculated using the Bryant/NIH equation. Cholesterol, HDL 41 >=40 mg/dL 01/01/20 7:23 PM RUG MEASURER NPRG Cholesterol, Non-HDL, Calculated 87 mg/dL 01/01/2024 7:23 PM RUG MEASURER NPRG Comment: ----REFERENCE VALUE---- Desirable: <130 mg/dL Above Desirable: 130-159 mg/dL Borderline High: 160-189 mg/dL High: 190-219 mg/dL Very High: > or =220 mg/dL Fasting (8 HR or more) No 01/01/2024 6:48 PM RUG MEASURER NPRG Blood (Blood, Venous) 01/01/2024 1:46 PM RUG MEASURER 01/01/2024 6:48 PM RUG MEASURER Chintan Chandler M.D. 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 [phone] PCP - General 04/24/17 documented as of this encounter
--- OUTSIDE RECORDS SUMMARY | 2024-02-02 09:32 | XMS_ITS | Encounter Summary ---
Author Name Unknown Organization [facility] Address [address] [place] [address] Care Team Providers Care Msw Name Role Phone Chintan Chandler M.D. Primary Care Provider [phone] Reason for Referral * Outpatient (Routine) - Authorized Specialty Diagnoses / Procedures Referred By Contac t Referred To Contact Diagnoses Preoperative Exam Procedures ECG 12 Lead Chintan Chandler M.D. [address] [place] [address] [facility] Region Referral ID Status Reason Start Date Expiration Date V isits Requested Visits Authorized [id number] Authorized 01/01/2024 12/31/2024 1 1 ENGER AGENT Reason for Visit * Reason Comments Pre-op Exam Rt knee total replac ement Dr. Murillo at the [facility] on 02/01 Encounter Details Date Type Department Care Team (Latest Contact Info) Description 01/01/2024 1:00 PM PASSENGER AGENT Office Visit Department of Family Medicine in [place], [place] [address] [place] [address] Chintan Chandler M.D. 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); Atrial Fibrillation Paroxysmal (HCC); Atherosclerotic Heart Disease Of [place] Coronary Artery Without Angina Pectoris; Primary Osteoarthritis Knee Right; Diabetes Mellitus Type 2 (HCC); Hypertensive Heart Disease Without Heart Failure Social History Tobacco Use Types Packs/Day Years Used Date Smoking Tobacco: Never Smokeless Tobacco: Never Alcohol Use Standard Drinks/Week Comments Not Currently 0 (1 standard drink = 0.6 oz pur e alcohol) rare [facility] Utilities Answer Date Recorded In the past 12 months has e [employer], gas, oil, or water company threatened to [...] week 11/13/2022 How often do you attend [facility] or restorationist services? 1 to 4 times per year 11/13/2022 Do you belong to any clubs o r organizations such as synagogue groups, unions, fraternal or athletic groups, or [...] Answer Date Recorded PHQ-2 Score 0 01/01/2024 [facility] Occupat ional [facility] - Occupational Stress Questionnaire Answer Date Recorded [...] your living situation today? I have a [facility] [place] to live 12/28/2023 Education Answer Date Recorded What is the highest level of school you have completed or the highest degree you have received? Associate degree: occupational, technical, or vocational program 10/12/2020 Sex and Gender Information Value Date Recorded Sex Assigned at Male 09/15/2017 7:45 AM PASSENGER AGENT Gender Identity Male 09/15/2017 7:45 AM PASSENGER AGENT Sexual Orientation Straight 09/15/2017 7: 45 AM PASSENGER AGENT documented as of this encounter Last Filed Vital Signs Vital Sign Reading Time Taken Comments Blood Pressure 153/80 01/01/2024 1:38 PM PASSENGER AGENT Pulse 55 01/01/2024 1:02 PM PASSENGER AGENT Temperature 36.4 ??C (97.5 ??F) 01/01/2024 1:02 PM CS T Respiratory Rate - - Oxygen Saturation 99% 01/01/2024 1:02 PM PASSENGER AGENT Inhaled Oxygen Concentration - - Weight 113 kg (250 lb) 01/01/2024 1:02 PM PASSENGER AGENT Height 180.3 cm (5' 10.98) 01/01/2024 1:[address] Body Mass Index 34.88 01/01/2024 1:02 PM PASSENGER AGENT documented in this encounter H&P Notes * Chintan Chandler M.D. - 01/01/2024 1:00 PM CST SUBJECTIVE CHIEF COMPLAINT/REASON FOR ADMISSION HORTENCIA HISTORY OF PRESENT ILLNESS Raman Adame is a 63 y.o. male who presents for HORTENCIA planning an elective right TKA at [facility] per Dr. Deal for painful osteoarthritis. 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) Stenosis Carotid Artery Right Atrial Fibrillation Paroxysmal (HCC) Arthroplasty Total Knee Replacement Status Post Left Primary Osteoarthritis Knee Right SURGICAL HISTORY Past Surgical History: Procedure Laterality Date CABG X 3 - JEMAL N/A 12/28/2018 Procedure: CORONARY ARTERY BYPASS GRAFT x3, BILATERAL INTERNAL THORACIC ARTERY.; Surgeon: Deepak Almonte M.D.; Location: T ROMB OR CATARACT EXTRACTION, BILATERAL Bilateral 08/2019 CATH ANGIOGRAM N/A 12/01/2018 Procedure: Coronary Angiography; Surgeon: Herb Duff M.D.; Location: [facility] CCL CORONARY ANGIOPLASTY WITH STENT PLACEMENT 2014 HARVE[facility] VEIN ENDOSCOPY LOWER EXTREMITY Bilateral 12/28/2018 Procedure: Possible HARVEST VEIN ENDOSCOPY LOWER EXTREMITY.; Surgeon: Deepak Almonte M.D.; Location: [facility] ROMB OR REPLACEMENT TOTAL KNEE Left 12/2019 ALLERGIES/CONTRAINDICATIONS No Known Allergies CURRENT MEDICATIONS Current Outpatient Medications: apixaban (Eliquis) 5 mg tablet, Take 1 tablet (5 mg total) by mouth 2 (two) times a day., Disp: 180tablet, Rfl: [address] tablet, Take 1 tablet (81 mg total) by mouth daily. as directed, Disp: 120 tablet,Rfl: 3 atorvastatin (LIPITOR) 80 mg tablet, Take 1 tablet (80 mg total) by mouth at bedtime., Disp: 90 tablet, Rfl: 3 blood-glucose meter,continuous (Dexcom G6 [employer] Tube Bender) misc, Test 4 times daily., Disp: 1 each, Rfl: 0 blood-glucose sensor (Dexcom G6 Sensor) device, CHANGE SENSOR EVERY 10 DAYS, Disp: 9 each, Rfl: 3 blood-glucose transmitter (Dexcom G6 Transmitter) device, Test 4 times daily., Disp: 1 each, Rfl: 3 co-enzyme Q-10 (for_CO Q-10) 100 mg capsule, Take 1 capsule by mouth daily., Disp: , Rfl: CYANOCOBALAMIN, VITAMIN B-12, ORAL, Take 1 tablet by mouth daily., Disp: , Rfl: insulin lispro (HumaLOG U-100 Insulin) 100 unit/mL injection, Per insulin Pump, Disp: 100 mL, Rfl: 3 isosorbide mononitrate (IMDUR) 30 mg 24 hr tablet, Take 1 tablet (30 mg total) by mouth daily., Disp: 90 tablet, Rfl: 3 ketoconazole (NIZORAL) 2 % cream, APPLY TWICE DAILY, Disp: 60 g, Rfl: 3 losartan (COZAAR) 25 mg tablet, Take 1 tablet (25 mg total) by mouth daily., Disp: 90 tablet, Rfl: 3 metoprolol succinate (TOPROL-XL) 25 mg 24 hr tablet, Take 1 tablet (25 mg total) by mouth daily. Donot crush or chew tablet., Disp: 90 tablet, Rfl: 3 multivitamin tablet, Take 1 tablet by mouth daily., Disp: , Rfl: nitroglycerin (NITROSTAT) 0.4 mg SL tablet, As needed, Disp: 25 tablet, Rfl: 3 insulin aspart U-100 (NovoLOG U-100 Insulin aspart) 100 unit/mL injection, ADJUST DOSING NEEDED-- UP TO 100 UNITS/ DAY (Patient not taking: Reported on 01/01/2024), Disp: 100 mL, Rfl: 3 FAMILY HISTORY Family History Problem Relation Age of Onset Cancer Sister Heart failure Brother Coronary artery bypass grafting Brother Cancer Mother uterine Diabetes Father Diabetes Paternal Grandmother No Known Problems Sister No Known Problems Sister No Known Problems Son No Known Problems Daughter No Known Problems Daughter No Known Problems Daughter No Known Problems Daughter No Known Problems Daughter No Known Problems Daughter No Known Problems Daughter SOCIAL HISTORY Social History Tobacco Use Smoking status: Never Smokeless tobacco: Never Vaping Use Vaping Use: never used Substance Use Topics Alcohol use: Not Currently Comment: rare Drug use: No IMMUNIZATIONS: Immunization History Administered Date(s) Administered H1N1 Inj 09/24/2009 Influenza high dose QV(65 years or older) (PF) 10/30/2023 Influenza, Unspecified 09/28/2013, 09/08/2014 PCV20 09/30/2022 PPSV23(Discontinued) 02/15/2013 SARS-COV-2 (COVID-19) - MODERNA (12 YEARS AND OLDER) [id number] 10/30/2023 SARS-COV-2 (COVID-19) - MODERNA(Discontinued) 01/04/2021, 02/01/2021, 10/01/2021 SARS-COV-2 (COVID-19) - PFIZER BIVALENT TS(Discontinued)(12 YEARS OR OLDER) 09/30/2022 Td (Adult), adsorbed 08/24/2006, 02/08/2007 Td Preservative Free (TENIVAC, DECAVAC) 12/13/2019 Tdap 04/09/2007, 09/07/2023 influenza vaccine quad (FLUZONE/FLUARIX) (6 months and older)(PF) 11/01/2018, 09/01/2019, 09/14/2020, 11/26/2021, 09/16/2022 REVIEW OF SYSTEMS Comprehensive medical review of systems is negative. OBJECTIVE VITAL SIGNS BP 153/80 Pulse (!) 55 Temp 36.4 ??C (Temporal) Ht 180.3 cm Wt 113 kg SpO2 99% BMI 34.88 kg/m?? PHYSICAL EXAMINATION General: Alert, no acute distress and anxious. Head: Normocephalic and atraumatic. Eye: Pupils are equal, round and reactive to light, extraocular movements are intact and sclera clear, not icteric. Cardiovascular: Regular rate and rhythm, No murmur, and No edema. Respiratory: Respirations are non-labored, breath sounds are equal and symmetrical chest wall expansion. Abdomen: Soft, nontender, nondistended and normal bowel sounds. Skin: Warm, dry, pink and no rash. Neurological: Alert and oriented to person, place, time, and situation. No focal neurological deficit observed. CN II-XII intact. Normal sensory, motor, speech and coordination observed. Psychiatric: Cooperative and appropriate mood & affect. DIAGNOSTICS ECG 12 Lead Result Date: 01/01/2024 Sinus bradycardia with sinus arrhythmia Premature ventricular complexes Left axis deviation When compared with ECG of 13-DEC-2019 09:19, Premature ventricular complexes are now present Reviewed by XOCHILT Escalante Lab Results Component Value Date WBC 5.4 01/01/2024 HGB 14.3 01/01/2024 HCT 43.1 01/01/2024 MCV 86.5 01/01/2024 PLT 231 01/01/2024 Lab Results Component Value Date NA 139 01/01/2024 KSERUM 5.3 (H) 09/07/2019 KBLOOD 4.1 12/29/2018 KPLASMA 4.8 01/01/2024 CL 104 01/01/2024 BICARB 25 01/01/2024 CREATININE 1.21 01/01/2024 CREATJAFFE 1.5 (H) 01/01/2019 CREATPOC 1.1 05/18/2019 EGFRBLKAA 83 04/15/2022 EGFRNONBLKAA 72 04/15/2022 POCEGFRNONAA 73 05/18/2019 EGFR 66 01/01/2024 BUN 20 01/01/2024 ANIONGAP 10 01/01/2024 GLUCOSE 188 (H) 01/01/2024 GLUCOSEPOC 131 01/19/2019 CALCIUM 9.0 01/01/2024 Lab Results Component Value Date HGBA1C 6.6 (H) 01/01/2024 HGBA1C 6.8 (H) 10/28/2023 HGBA1C 6.3 (H) 04/22/2023 ASSESSMENT / PLAN 1. Preoperative Exam Medically optimized and can proceed. - Basic Metabolic Panel - CBC with Differential, Blood - ECG 12 Lead 2. 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 No hypoglycemic interventions needed. Plan to continue routine monitoring with 3 month interval rechecks. - Hemoglobin A1c; Future - Hemoglobin A1c - Lipid Panel 3. Atrial Fibrillation Paroxysmal (HCC) This diagnosis was made in the immediate post-operative period after bypass. Raman was previously offered a trial off of the apixaban which up until now has been deferred. I recommend he continue his current LTA up until 5 days before surgery and then can discontinue. He can consider restarting post-op and I would recommend either a 48 hour Holter or Zio Patch monitoring trial before he terminates LTA permanently. - Basic Metabolic Panel 4. Atherosclerotic Heart Disease [facility] [place] Coronary Artery Without Angina Pectoris Raman is 5 years s/p CABG and doing well. He has no evidence of exercise intolerance and no angina equivalent symptoms detected at MET level 4 activities. No further work up needed pre-operatively. - CBC with Differential, Blood; Future - Basic Metabolic Panel; Future - Basic Metabolic Panel - CBC with Differential, Blood - ALT (Alanine Aminotransferase) - Lipid Panel 5. Primary Osteoarthritis Knee Right 6. Diabetes Mellitus Type 2 (HCC) Same assessment as per #2. 7. Hypertensive Heart Disease Without Heart Failure He has acceptable control today in the eli-operative setting but not at his systolic target < 140. Plan to manage medically to target if necessary after his elective surgery. documented in this encounter Plan of Treatment Upcoming Encounters Date Type Department Care Team (Late st Contact Info) Description 04/06/2024 8:30 AM CDT Appointment Department of Laboratory Medicine in [place], [place] [address] [place] [address] Chintan Chandler M.D. 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) Atherosclerotic Heart Disease [facility] [place] Coronary Artery Without Angina Pectoris ALANINE AMINOTRANSFERASE (ALT), S/P Routine 01/01/2024 1:46 PM PASSENGER AGENT Atherosclerotic Heart Disease [facility] [place] Coronary Artery Without Angina Pectoris HEMOGLOBIN A1C, B Routine 01/01/2024 1:4 6 PM PASSENGER AGENT 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) BASIC METABOLIC PANEL, S/P Routine 01/01/2024 1:46 PM PASSENGER AGENT Preoperative Exam Atrial Fibrillation Paroxysmal (HCC) Atherosclerotic Heart Disease Of [place] Coronary Artery Without Angina Pectoris documented in this encounter Results * (ABNORMAL) CBC with Differential, Blood (01/01/2024 2:25 PM PASSENGER AGENT) Hemoglobin 14.3 13.2 - 16.6 g/dL 01/01/2024 7:13 PM PASSENGER AGENT NPRG Hematocrit 43.1 38.3 - 48.6 % 01/01/2024 7:13 PM PASSENGER AGENT NPRG Erythrocytes 4.98 4.35 - 5.65 x10(12)/L 01/01/2024 7:13 PM PASSENGER AGENT NPRG MCV 86.5 78.2 - 97.9 fL 01/01/2024 7:13 PM PASSENGER AGENT NPRG RBC Distrib Width 13.9 11.8 - 14.5 % 01/01/2024 7:13 PM PASSENGER AGENT NPRG Platelet Count 231 135 - 317 x10(9)/L 01/01/2024 7:13 PM PASSENGER AGENT NPRG Leukocytes 5.4 3.4 - 9.6 x10(9)/L 01/01/2024 7:13 PM PASSENGER AGENT NPRG Neutrophils 3.94 1.56 - 6.45 x10(9)/L 01/01/2024 7:13 PM PASSENGER AGENT NPRG Lymphocytes 0.75(L) 0.95 - 3.07 x10(9)/L 01/01/2024 7:13 PM PASSENGER AGENT NPRG Monocytes 0.52 0.26 - 0.81 x10(9)/L 01/01/2024 7:13 PM PASSENGER AGENT NPRG Eosinophils 0.11 0.03 - 0.48 x10(9)/L 01/01/2024 7:13 PM PASSENGER AGENT NPRG Basophils 0.04 0.01 - 0.08 x10(9)/L 01/01/2024 7:13 PM PASSENGER AGENT NPRG Blood (Blood, Venous) 01/01/2024 2:25 PM PASSENGER AGENT 01/01/2024 6:49 PM PASSENGER AGENT Chintan Chandler M.D. LAB BLOOD ADD-ON [facility] [address] [place] [address], [facility] NPRG [facility] [address] [place] [address] * ECG 12 Lead (01/01/2024 1:57 PM PASSENGER AGENT) Ventricular Rate ECG/Min 57 BPM MUSE [place] Interval 186 ms MUSE QRSD Interval 94 ms MUSE QT Interval 422 ms MUSE QTC Interval 410 ms MUSE P [place] 24 degrees MUSE R [place] -42 degrees MUSE T Wave [place] 45 degrees MUSE 01/01/2024 1:57 PM PASSENGER AGENT 01/01/2024 2:00 PM PASSENGER AGENT Impressions MUSE - 01/01/2024 2:00 PM PASSENGER AGENT Sinus bradycardia with sinus arrhythmia Premature ventricular complexes Left axis deviation When compared with ECG of 13-DEC-2019 09:19, Premature ventricular complexes are now present Reviewed by XOCHILT Escalante Narrative Procedure Note Dre Low M.BRosangelaB.S. - 01/01/2024 IMPRESSION: Sinus bradycardia with sinus arrhythmia Premature ventricular complexes Left axis deviation When compared with ECG of 13-DEC-2019 09:19, Premature ventricular complexes are now present Reviewed by XOCHILT Escalante Chintan Chandler M.D. ECG ORDERABLES MUSE NA * Lipid Panel (01/01/2024 1:46 PM PASSENGER AGENT) Triglycerides 148 mg/dL 01/01/2024 7:23 PM PASSENGER AGENT NPRG Comment: ----REFERENCE VALUE---- Normal: <150 mg/dL Borderline High: 150-199 mg/dL High: 200-499 mg/dL Very High: > or =500 mg/dL Cholesterol, Total 128 mg/dL 2023 7:23 PM PASSENGER AGENT NPRG Comment: ----REFERENCE VALUE---- Desirable: < 200 mg/dL Borderline High: 200 - 239 mg/dL High: > or = 240 mg/dL Cholesterol, LDL, Calculated 61 mg/dL 01/01/2024 7:23 PM PASSENGER AGENT NPRG Comment: ----REFERENCE VALUE---- Desirable: <100 mg/dL Above Desirable: 100-129 mg/dL Borderline High: 130-159 mg/dL High: 160-189 mg/dL Very High: >=190 mg/dL ----ADDITIONAL INFORMATION---- LDL cholesterol calculated using the Bryant/NIH equation. Cholesterol, HDL 41 >=40 mg/dL 01/01/20 7:23 PM PASSENGER AGENT NPRG Cholesterol, Non-HDL, Calculated 87 mg/dL 01/01/2024 7:23 PM PASSENGER AGENT NPRG Comment: ----REFERENCE VALUE---- Desirable: <130 mg/dL Above Desirable: 130-159 mg/dL Borderline High: 160-189 mg/dL High: 190-219 mg/dL Very High: > or =220 mg/dL Fasting (8 HR or more) No 01/01/2024 6:48 PM PASSENGER AGENT NPRG Blood (Blood, Venous) 01/01/2024 1:46 PM PASSENGER AGENT 01/01/2024 6:48 PM PASSENGER AGENT Chintan Chandler M.D. LAB BLOOD ADD-ON [facility] [address] [place] [address], [facility] [place] [address] [place] [address] * ALT (Alanine Aminotransferase) (01/01/2024 1:46 PM PASSENGER AGENT) Alanine Aminotransferase (ALT), P 21 7 - 55 U/L 01/01/2024 7:23 PM PASSENGER AGENT NPRG Blood (Blood, Venous) 01/01/2024 1:46 PM PASSENGER AGENT 01/01/2024 6:48 PM PASSENGER AGENT Chintan Chandler M.D. LAB BLOOD ADD-ON Performing Organization Address [facility] Co de Phone Number [facility] [address] [place] [address], [facility] [place] [address] [place] [address] * (ABNORMAL) Hemoglobin A1c (01/01/2024 1:46 PM PASSENGER AGENT) Hemoglobin A1c, B 6.6(H) 4.2 - 5.6 % 01/01/2024 7:27 PM PASSENGER AGENT NPRG Comment: Hemoglobin A1c values greater than or equal to 6.5 percent are diagnostic for diabetes mellitus. ??Diagnosis should be confirmed by repeat testing. ??In diabetic patients, HbA1c goals should be discussed with healthcare provider. Blood (Blood, Venous) 01/01/2024 1:46 PM PASSENGER AGENT 01/01/2024 6:48 PM PASSENGER AGENT Chintan Chandler M.D. LAB BLOOD ADD-ON [facility] [address] [place] [address], [facility] [place] [address] [place] [address] * (ABNORMAL) Basic Metabolic Panel (01/01/2024 1:46 PM PASSENGER AGENT) Potassium, P 4.8 3.6 - 5.2 mmol/L 01/01/2024 7:23 PM PASSENGER AGENT NPRG Sodium, P 139 135 - 145 mmol/L 01/01/2024 7:23 PM PASSENGER AGENT NPRG Chloride, P 104 98 - 107 mmol/L 01/01/2024 7:23 PM PASSENGER AGENT NPRG Bicarbonate, P 25 22 - 29 mmol/L 01/01/2024 7:23 PM PASSENGER AGENT NPRG Anion Gap, P 10 7 - 15 01/01/2024 7:23 PM PASSENGER AGENT NPRG BUN (Blood Urea Nitrogen), P 20 8 - 24 mg/dL 01/01/2024 7:23 PM PASSENGER AGENT NPRG Creatinine 1.21 0.74 - 1.35 mg/dL 01/01/2024 7:23 PM PASSENGER AGENT NPRG Estimated GFR (eGFR) 66 >=60 mL/min/BSA 01/01/2024 7:23 PM PASSENGER AGENT NPRG Comment: Estimated GFR calculated using the 2020 CKD_EPI creatinine equation. Calcium, Total, P 9.0 8.8 - 10.2 mg/dL 01/01/2024 7:23 PM PASSENGER AGENT NPRG Glucose, P 188(H) 70 - 140 mg/dL 01/01/2024 7:23 PM PASSENGER AGENT NPRG Blood (Blood, Venous) 01/01/2024 1:46 PM PASSENGER AGENT 01/01/2024 6:48 PM PASSENGER AGENT Chintan Chandler M.D. LAB BLOOD ADD-ON 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 [address] [place] [address] PCP - General 04/24/17 documented as of this encounter
--- OUTSIDE RECORDS SUMMARY | 2024-02-02 09:32 | XMS_ITS | Encounter Summary ---
Author Name Unknown Organization [facility] Address [address] [place] [address] Care Team Providers Care Archivist Military History Name Role Phone Chintan Chandler M.D. Primary Care Provider [phone] Reason for Visit * Reason Onset Date Comments Left Without Being Seen 12/25/2023 * Appointment Request (Routine) - Closed Specialty Diagnoses / Procedures Referred By Savanah ponce Referred To Contact Family Medicine Referral ID Status Reason Start Date Expiration Date Visits Re quested Visits Authorized [id number] Closed 10/23/2023 10/22/2024 1 1 Encounter Details Date Type Department Care Team (Late st Contact Info) Description 10/28/2023 10:00 AM HOSPITAL STAFF PHARMACIST Office Visit Department of Family Medicine in [place], [place] [address] [place] [address] Chintan Chandler M.D. [address] [place] [phone] Procedure And Treatment Not Carried Out Due To Patient Leaving Prior To Being Seen By Health Care Provider (Primary Dx) Social History Tobacco Use Types [...] How often do you attend chur or protestant services? 1 to 4 times per year 11/13/2022 Do you belong to any clubs o r organizations such as episcopalian groups, unions, fraternal or athletic groups, or [...] Answer Date Recorded PHQ-2 Score 0 01/20/2023 [facility] [place] of Occupat ional Health - Occupational Stress [...] place to sleep or slept in a long term (including now)? No 11/13/2022 Nutrition Answer Date [...] Sex Assigned at Male 09/15/2017 7:45 AM HOSPITAL STAFF PHARMACIST Gender Identity Male 09/15/2017 7:45 AM HOSPITAL STAFF PHARMACIST Sexual Orientation Straight 09/15/2017 7: 45 AM HOSPITAL STAFF PHARMACIST documented as of this encounter Progress Notes * SwygRomelia iros RHIT - 10/28/2023 10:00 AM CST Raman Adame was scheduled and checked in for an appointment but left before being seen by Chintan Chandler M.D.. ITAL STAFF PHARMACIST documented in this encounter Plan of Treatment Upcoming Encounters Date Type Department Care Team (Late st Contact Info) Description 04/06/2024 8:30 AM CDT Appointment Department of Laboratory Medicine in [place] [address] [place] [address] Chintan Chandler M.D. [address] [place] [phone] documented as of this encounter Visit Diagnoses Diagnosis Procedure And Treatment Not Carried Out Due To Patient Leaving Prior To Being Seen By Health Care Provider- Primary documented in this encounter Care Teams Archivist Military History Relationship Specialty Start Date End Date Chintan Chandler M.D. [address] [place] [phone] PCP - General 04/24/17 documented as of this encounter
--- OUTSIDE RECORDS SUMMARY | 2024-02-02 09:32 | XMS_ITS | Clinical Summary ---
Author Name Unknown Organization [facility] Address [place], [place] [address] Care Team Providers Care Robotic Machine Tender Production Name Role Phone Chintan Chandler MD Primary Care Provider [phone] Allergies No known active allergies Medications Medication Sig Dispensed Refills Start Date End Date Status acetaminophen (TYLENOL EXTRA STRGTH) 500 mg tablet Take 1,000 mg by mouth every 6 hours if needed. Max acetaminophen dose: 4000mg in 24 hrs. Active amiodarone (CORDARONE) 200 mg tablet Take 200 mg by mouth once daily. Please take one tablet twice daily for one week, then decrease to one tablet daily for four weeks. Active apixaban (ELIQUIS) 5 mg tablet Take 5 mg by mouth 2 times daily. Active aspirin (ECOTRIN) 81 mg enteric coated tablet Take 81 mg by mouth once daily with a meal. Active atorvastatin (LIPITOR) 80 mg tablet Take 80 mg by mouth at bedtime. Active coenzyme q10 100 mg cap Take 100 mg by mouth once daily. Active cyanocobalamin, vitamin B-12, (CYANOCOBALAMIN ORAL) Take by mouth once daily. Active ferrous gluconate 324 mg (37.5 mg iron) tab tablet Take 324 mg by mouth once daily with a meal. Take 1 tablet (37.5mg of iron total) by mouth daily. Active docosahexanoic acid/epa (FISH OIL ORAL) Take 1 capsule by mouth 2 times daily. Active blood sugar diagnostic (FREESTYLE TEST) strip As directed. Test before meals and two hours after or as directed. Pt has insulin pump w/ basal rate. Active gabapentin (NEURONTIN) 100 mg capsule Take 100 mg by mouth 3 times daily. Active INSULIN ASPART U-100 SUBQ Inject subcutaneous. Adjust dosing as needed. Active isosorbide mononitrate (IMDUR) 30 mg extended release tablet 24 Hour Take 30 mg by mouth once daily. Active melatonin 3 mg tablet Take 6 mg by mouth at bedtime if needed for Sleep. Active metoprolol succinate (TOPROL XL) 25 mg Sustained-Release tablet Take 25 mg by mouth once daily. Active nitroglycerin (NITROSTAT) 0.[address] 0.4 mg under the tongue every 5 minutes if needed for Chest Pain. 1 tab sublingual every 5 minutes as needed for chest pain; not to exceed 3 doses/15 minutes--if pain persists, seek medical attention. Active sennosides-docusate , 8.6-50 mg, (SENOKOT-S) 8.6-50 mg tablet Take 2 tablets by mouth at bedtime if needed for Constipation. Active Encounters Date Type Department Care Team Description 12/30/2023 Orders Only [facility] [address] [place] [address] Angel Deal MD <No scans attached> from Last 3 Months Social History Tobacco Use Types Packs/Day Years Used Date Smoking Tobacco: Never Assessed Sex and Gender Information Value Date Recorded Sex Assigned at Not on file Gender Identity Not on file Sexual Orientation Not on file Last Filed Vital Signs Vital Sign Reading Time Taken Comments Blood Pressure 118/64 04/20/2019 9:00 AM CDT Pulse 57 04/20/2019 9:00 AM CDT Temperature - - Respiratory Rate 16 02/18/2019 9:14 AM CDT Oxygen Saturation - - Inhaled Oxygen Concentration - - Weight 98 kg (216 lb) 04/06/2019 9:15 AM CDT Height 180.3 cm (5' 10.98) 04/06/2019 9:15 AM C DT Body Mass Index 30.14 04/06/2019 9:15 AM CDT Plan of Treatment Upcoming Encounters Date Type Department Care Team (Late st Contact Info) Description 02/04/2024 9:00 AM CDT Appointment [facility] [address] [place], [place] [address] Maria G Lujan, PT [address] [place] [address] Health Maintenance Due Date Last Done Comments Tdap 1969 Depression screening for age 12+ 1970 HIV for age 15-65 1973 BMI (ht and wt on same day) for age 18+ 1976 Hepatitis C screening for ag e 18-79 1976 Tetanus booster 1978 Colonoscopy through age 75 2003 Lipids for age 45-75 2003 Zoster (shingles) series for age 50+ (1 of 2) 2008 Pneumococcal series for age 65+ (1 of 1 - PCV) 2023 Influenza for age 65+ 06/26/2024 COVID-19 vaccine series Completed 10/30/19, 09/30/2022, 02/01/2021, Additional history exists Care Teams Robotic Machine Tender Production Relationship Specialty Start Date End Date Chintan Chandler MD [address] [place] [phone] PCP - General Family Practice 01/25/19
--- OUTSIDE RECORDS SUMMARY | 2024-02-02 09:32 | XMS_ITS | Encounter Summary ---
Author Name Unknown Organization [facility] Address [address] [place] [address] Care Team Providers Care Marketing Summer Intern Name Role Phone Chintan Chandler M.D. Primary Care Provider [phone] Encounter Details Date Type Department Care Team (Latest Contact Info) Description 10/28/2023 8:44 AM FINANCIAL REPORTING MANAGER - 10/28/2023 11:59 PM [facility] Hospital Encounter Department of Laboratory Medicine in [place], [place] [address] [place] [phone] Chintan Chandler M.D. 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 1 to 4 times per year 11/13/2022 Do you belong to any clubs o r organizations such as pentecostalism groups, unions, fraternal or athletic groups, or [...] Answer Date Recorded PHQ-2 Score 0 01/20/2023 [facility] - Occupational Stress [...] place to sleep or slept in a detention (including now)? No 11/13/2022 Nutrition Answer Date [...] Sex Assigned at Male 09/15/2017 7:45 AM FINANCIAL REPORTING MANAGER Gender Identity Male 09/15/2017 7:45 AM FINANCIAL REPORTING MANAGER Sexual Orientation Straight 09/15/2017 7: 45 AM FINANCIAL REPORTING MANAGER documented as of this encounter Medications at Time of Discharge Medication Sig Dispensed Refills Start Date End Date aspirin [address] tablet Take 1 tablet (81 mg total) by mouth daily. as directed 120 tablet 3 07/11/2020 blood-glucose meter,continuous (Dexcom G6 Hourly Manager) miscIndications:Diabet es Mellitus Type 2 With Other Circulatory Complication (HCC) Test 4 times daily. 1 each 0 12/22/2022 co-enzyme Q-10 (for_CO Q-10) 100 mg capsule Take 1 capsule by mouth daily. 0 01/21/2017 CYANOCOBALAMIN, VITAMIN B-12, ORAL Take 1 tablet by mouth daily. 0 07/16/2016 ketoconazole (NIZORAL) 2 % cream APPLY TWICE DAILY 60 g 3 01/21/2023 multivitamin tablet Take 1 tablet by mouth daily. 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 180 tablet 3 11/26/2021 10/30/2023 atorvastatin (LIPITOR) 80 mg tabletIndications:Diab etes Mellitus Type 2 With Other Circulatory Complication (HCC) TAKE 1 TABLET (80 MG TOTAL) BY MOUTH AT BEDTIME. 90 tablet 3 05/19/2023 10/30/2023 blood-glucose meter [facility] Guardian Sensor with paradym reservoir as directed for diabetes control. 12 each 1 10/01/2022 10/30/2023 blood-glucose sensor (Dexcom G6 Sensor) deviceIndications:Diab etes Mellitus Type 2 With Other Circulatory Complication (HCC) CHANGE SENSOR EVERY 10 DAYS 9 each 3 08/12/2023 10/30/2023 blood-glucose transmitter (Dexcom G6 Transmitter) deviceIndications:Diab etes Mellitus Type 2 With Other Circulatory Complication (HCC) Test 4 times daily. 1 each 3 08/12/2023 10/30/2023 glucagon (Baqsimi) 3 mg/actuation spray,non-aerosol Administer 3 mg into nostril(s) as needed (hypoglycemia). 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 90 tablet 1 08/13/2023 10/30/2023 losartan (COZAAR) 25 mg tabletIndications:Hype rtensive Heart Disease Without Heart Failure Take 1 tablet (25 mg total) by mouth daily. 90 tablet 3 11/26/2021 10/30/2023 metoprolol succinate (TOPROL-XL) 25 mg 24 hr tabletIndications:Hype rtension Essential Primary TAKE 1 TABLET (25 MG TOTAL) BY MOUTH DAILY. DO NOT CRUSH OR CHEW TABLET. 90 tablet 3 01/21/2023 10/30/2023 documented as of this encounter Plan of Treatment Upcoming Encounters Date Type Department Care Team (Late st Contact Info) Description 04/06/2024 8:30 AM CDT Appointment Department of Laboratory Medicine in [place], [place] [address] [place] [address] Chintan Chandler M.D. 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 ??Diagnosis should be confirmed by repeat testing. ??In diabetic patients, HbA1c goals should be discussed with healthcare provider. Blood (Blood, Venous) 10/28/2023 8:54 AM FINANCIAL REPORTING MANAGER 10/28/2023 11:37 AM FINANCIAL REPORTING MANAGER Chintan Chandler M.D. 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 [address] [place] [phone] PCP - General 04/24/17 documented as of this encounter
[2024-02-02] MEDS: SODIUM CHLORIDE 0.9 % (FLUSH) 10 ML SYRINGE IVF (09:50)
[2024-02-02] MEDS: LACTATED RINGERS 1000 ML 1,000 ML 100 ML IV ×2 (09:50→14:22)
[2024-02-02] MEDS: ACETAMINOPHEN 500 MG TABLET 1000 MG PO ×2 (09:55→18:14)
[2024-02-02] MEDS: CELECOXIB 200 MG CAPSULE PO (09:55)
[2024-02-02] MEDS: fentaNYL 100 MCG/2 ML inj IVP (12:10)
[2024-02-02] MEDS: MIDAZOLAM HCL 1 MG/ML inj IVP (12:10)
--- NOTE | 2024-02-02 12:21 | SUR.PREOP ---
TIME?OUT:?1210 PT/Stephanie GUTIÉRREZ RN/Erika ROGEL MDA?VERIFICATION?OF?SURGICAL?SITE,?PROCEDURE,?AND?CONSENT OBTAINED?PRIOR?TO?INVASIVE?PROCEDURE.
[2024-02-02] MEDS: CEFAZOLIN 2 GM INJ IVP (12:40)
[2024-02-02] MEDS: TRANEXAMIC ACID 100 MG/ML INJ 1000 MG IV (12:45)
--- NOTE | 2024-02-02 12:50 | P.NB_ITS ---
Nerve Block Nerve Block Time Seen by Provider: 12:17 Date Seen: 02/02/24 Type of block requested by surgeon for post-operative analgesia: adductor canal Side: right Time out performed: Yes Verification of patient name: Yes Verification of date of : Yes Site marking: site marked Name of person performing procedure: David Continuous monitoring Was continuous monitoring of O2 sat, B/P, cardiac technician, recorded every 15 minutes?: Yes Procedure Checklist: sterile prep, needles and gloves Ultrasound guided. Images saved: Yes Medications given in 5ml increments after negative aspiration: Ropivicaine %: 0.5 mL: 20 Needle gauge: 20 Decadron (mg): 10 Precedex (mcg): 25 Patient tolerated procedure well: Yes Additional comments: Needle noted adjacent to nerve Block Charges Block Charge (with Pro Fee): Femoral Nerve Use of Ultrasound Machine for Block: Yes- US Guidance/pain block
--- NOTE | 2024-02-02 12:52 | P.NB_ITS ---
Nerve Block Nerve Block Time Seen by Provider: 12:17 Date Seen: 02/02/24 Type of block requested by surgeon for post-operative analgesia: geniculars Side: right Time out performed: Yes Verification of patient name: Yes Verification of date of : Yes Site marking: site marked Name of person performing procedure: David Continuous monitoring Was continuous monitoring of O2 sat, B/P, cardiac monitor technician, recorded every 15 minutes?: Yes Procedure Checklist: sterile prep, needles and gloves Medications given in 5ml increments after negative aspiration: Ropivicaine %: 0.5 mL: 9 Needle gauge: 25 Patient tolerated procedure well: Yes Block Charges Block Charge (with Pro Fee): Genicular Nerve Block Use of Ultrasound Machine for Block: No
--- NOTE | 2024-02-02 12:52 | W.ANESCHARGE ---
Anesthesia Charges Start Date/Time Anesthesia Start Date: 02/02/24 Anesthesia Start Time: 12:29 Stop Date/Time Anesthesia Stop Date: 02/02/24 Anesthesia Stop Time: 15:28
--- NOTE | 2024-02-02 14:37 | XR_ITS ---
Patient: JIM MORALES Facility:?[facility] Patient ID:?[id number] Site Patient ID:?[id number]. Site :?[id number] Study:?XRay-Knee Right 2 view post op-02/02/2024 3:42:02 PM Ordering Physician:?Angel Deal Final Report: Indication: Postop right TKA Technique: Two views right knee Findings/Impression: Hardware from a right total knee arthroplasty is in satisfactory position. Bone alignment is normal. No sign of acute fracture. Postop changes are within normal limits. Dictated by Richar Mario MD @ 02/04/2024 9:11:23 AM Signed by:?Richar Mario MD @02/04/2024 9:11:23 AM (Electronic Signature)
--- NOTE | 2024-02-02 14:45 | PM.ORPRC ---
Procedure Note Date of procedure: 02/02/24 Procedure: PREOPERATIVE DIAGNOSIS: Right knee osteoarthritis POSTOPERATIVE DIAGNOSIS: Right knee osteoarthritis NAME OF OPERATION: Right total knee arthroplasty SURGEON: Angel Deal MD SPRIGGER: Pia Camacho PA-C ANESTHESIA: Spinal ESTIMATED BLOOD LOSS: 0 mL COMPLICATIONS: None SPECIMENS: None DRAINS: None PREOPERATIVE ANTIBIOTICS: Ancef 2 grams, antibiotic impregnated cement IMPLANTS: 1. J&J Attune # 7 posterior stabilized femur 2. # 8 revision CRS fixed-bearing tibia, with a 14 mm x 50 mm cemented stem 3. # 7 posterior stabilized, 6 mm fixed-bearing polyethylene 4. 41 patella INDICATIONS: The patient is a 63-year-old with a longstanding history of severe, unrelenting right knee pain secondary to end-stage (grade IV) right knee osteoarthritis. Despite appropriate nonoperative management, including activity modification, anti-inflammatories, [id number] pain medication, bracing, physical therapy, and injections they continue to have pain and disability. Operative intervention was offered. The risks, benefits and expected outcomes were discussed in detail. These included but were not limited to: Infection, bleeding, injury to blood vessel or nerve, venous thromboembolism. All questions were answered to their satisfaction. Use of an liaison inspection laboratory assistant was necessary throughout the case for patient positioning and safety, soft tissue retraction, and closure. A modifier 22 should be added to this case. Since the patient weighs 113 kg, with a BMI of 35 we elected to use a stem on the tibia to reduce the risk of aseptic loosening. This added cost and time to complete the case. PROCEDURE: Spinal anesthesia was administered. The patient was placed supine on the operating table. The liaison inspection laboratory assistant made sure the patient was positioned appropriately. The lower extremity was prepped and draped in the usual sterile fashion. The limb was exsanguinated with the Chintan bandage. The pneumatic tourniquet was inflated to 300 mmHg. A standard anterior incision was made with the knee in flexion. Subcutaneous dissection was sharply taken through fascial layer #1. Full-thickness medial and lateral flaps were elevated. The liaison inspection laboratory assistant retracted the soft tissues and protected them throughout the case. A standard subvastus approach was made. The patella was everted. The infrapatellar fat pad was preserved. The menisci and cruciate ligaments were sharply d?brided. Marginal osteophytes were d?brided with the rongeur. The drill was used to penetrate the femoral canal. The canal was aspirated and irrigated with pulse lavage. The intramedullary femoral guide was placed for a 5-degree valgus cut, removing 10 mm off the distal femur. The saw was used to make the cut. Whitesides line and the trans epicondylar axis were marked. The femoral sizing guide was pinned onto the distal femur. Three degrees of external rotation nicely parallels the transepicondylar axis. Pins were placed for posterior referencing. The four-in-one cutting guide was pinned onto the distal femur. The anterior, posterior, and chamfer cuts were made. The liaison inspection laboratory assistant protected the collateral ligaments. The box cutting guide was pinned. The box cuts were made. The boxed trial was placed and was an excellent fit. Drill holes for the lugs were made. Attention was then turned to the proximal tibia. The extramedullary tibial guide was placed for a neutral varus/valgus cut with 5 degrees of posterior slope, removing 0 mm based off the medial tibial surface. The liaison inspection laboratory assistant protected the collateral ligaments and the neurovascular bundle. The saw was used to make the cut. Trial components were placed. The knee was nicely balanced in both flexion and extension. The trial components were removed. The tray was placed in appropriate rotation, parallel to our tibial cutting pins. It was pinned by the liaison inspection laboratory assistant and the drill x2 was used. The stemmed tibial trial was placed. The punch was used. The tray was removed. The punch was used again. A bone plug was placed in the femoral canal. Attention was then turned to the patella. Inupiat patellar thickness was 28 mm. The lobster claw resection guide was used with the 9.5 mm paulina. The saw was used to make the cut. Drill holes were made by the liaison inspection laboratory assistant. The trial was placed and was an excellent fit. Cancellous surfaces were irrigated with pulse lavage and thoroughly dried by the liaison inspection laboratory assistant. We cemented the tibial component, then the femoral component. We impacted the 6 mm polyethylene onto the tibial tray. The knee was brought into full extension. We then cemented the patellar component. Excessive cement was removed. The cement was allowed to harden. The knee was taken through a range of motion and was found to be nicely balanced in both flexion and extension. The patella tracks centrally. The liaison inspection laboratory assistant did a three minute dilute Betadine solution soak. The liaison inspection laboratory assistant irrigated the wound with 3 liters of normal saline via pulse lavage. The liaison inspection laboratory assistant reapproximated the extensor mechanism with #1 Vicryl in an interrupted [id number] fashion. The liaison inspection laboratory assistant then ran the extensor mechanism with a #1 PDO Stratafix. The liaison inspection laboratory assistant closed the subcutaneous tissues with a 3-0 Stratafix and the skin with a running 3-0 Stratafix in a subcuticular fashion. Glue was used to seal the skin. The liaison inspection laboratory assistant placed a dry dressing, BHARGAV stocking, and Polar Care. Sponge and needle counts were correct x2. The patient tolerated the procedure well. There were no apparent complications. They were carefully transferred to the hospital bed and taken to the postanesthesia care unit in satisfactory condition. PLAN: The patient will be mobilized with physical therapy. The patient's usual dose of Eliquis and aspirin can be restarted tomorrow. They will be discharged to home once medically appropriate.
--- NOTE | 2024-02-02 15:30 | W.ANESCHARGE ---
Anesthesia Charges Start Date/Time Anesthesia Start Date: 02/02/24 Anesthesia Start Time: 12:29 Stop Date/Time Anesthesia Stop Date: 02/02/24 Anesthesia Stop Time: 15:28
[2024-02-02] MEDS: MEPERIDINE 25 MG/ML INJ 12.5 MG IVP (15:54)
[2024-02-02] MEDS: LACTATED RINGERS 1000 ML 1,000 ML 35 ML IV (16:04)
--- NOTE | 2024-02-02 17:40 | PM.IMCN1 ---
Date of Consult Patient: [facility] Patient Consult date: 02/02/24 Requesting Physician: Orthopedics Primary Care Provider: Chintan Chandler MD Consult Narrative Reason for consult: Medical management Narrative: Raman Adame is a 63 year old male past medical history significant for hypertension, atherosclerotic heart disease, status post coronary stent, hyperlipidemia, pre-excitation syndrome, status post bypass coronary artery graft, diabetes mellitus type 2 with insulin pump, atrial fibrillation on chronic anticoagulation is POD#0 status post right total knee arthroplasty with Dr. Deal. There have been no perioperative complications or nursing concerns reported. Estimated total blood loss documented as 0 ml. Updated and reviewed the active medical problems, past medical history, past surgical history, social history, allergies and medications in our electronic EMR. Patient has been mildly bradycardic postoperatively, having taken his beta-maría this morning prior to surgery. Asymptomatic with this. Heart rate improving after arriving to the floor, baseline is 50s for him. Review of Systems Narrative: REVIEW OF SYSTEMS: Complete review of systems performed and negative unless otherwise stated in HPI or below. PFSH [facility] Medical History (Updated 02/02/24 @ 17:52 by Nesha Mcclain PA-C) Hyperlipidemia ?E78.5 - Hyperlipidemia, unspecified (ICD-10) Atrial fibrillation ?I48.91 - Unspecified atrial fibrillation (ICD-10) Hypertension ?I10 - Essential (primary) hypertension (ICD-10) Elevated cholesterol ?E78.00 - Pure hypercholesterolemia, unspecified (ICD-10) Atherosclerotic heart disease of [place] coronary artery without angina pectoris ?I25.10 - Atherosclerotic heart disease of [place] coronary artery without angina pectoris (ICD-10) Surgical History History of coronary angioplasty with insertion of stent (2013) ?Z95.5 - Presence of coronary angioplasty implant and graft (ICD-10) History of endoscopic harvesting of vein (12/28/18) ?Z98.890 - Other specified postprocedural states (ICD-10) Hx of cataract extraction (08/2019) ?Z98.49 - Cataract extraction status, unspecified eye (ICD-10) History of coronary artery stent placement ?Z95.5 - Presence of coronary angioplasty implant and graft (ICD-10) Hx of CABG (12/28/18) ?Z95.1 - Presence of aortocoronary bypass graft (ICD-10) Status post total left knee replacement (01/10/20) ?Z96.652 - Presence of left artificial knee joint (ICD-10) Family History Brother Coronary artery disease Mother Uterine cancer Father Diabetes Paternal Grandmother Diabetes Social History Smoking Status: Never smoker How often do you have a drink containing alcohol: never AUDIT-C Alcohol total score: 0 Non-prescribed substance use: denies use Caffeine: Yes Meds Home Medications and Allergies Home Medications Medication Instructions Recorded Confirmed Type apixaban 5 mg tablet 5 mg PO BID 12/28/23 02/02/24 History aspirin 81 mg tablet,delayed 81 mg PO DAILY 12/28/23 02/02/24 History release atorvastatin 80 mg tablet 80 mg PO DAILY 12/28/23 02/02/24 History coenzyme Q10 100 mg capsule 100 mg PO DAILY 12/28/23 02/02/24 History cyanocobalamin (vitamin B-12) 500 500 mcg PO DAILY 12/28/23 02/02/24 History mcg tablet ferrous gluconate 324 mg (38 mg 324 mg PO DAILY 12/28/23 02/02/24 History iron) tablet insulin lispro 100 unit/mL 100 unit subcut DAILY 12/28/23 02/02/24 History subcutaneous solution (Humalog U-100 Insulin) isosorbide mononitrate 30 mg 30 mg PO DAILY 12/28/23 02/02/24 History tablet,extended release 24 hr metoprolol succinate 25 mg 25 mg PO DAILY 12/28/23 02/02/24 History tablet,extended release 24 hr losartan 25 mg tablet 25 mg PO DAILY 02/02/24 02/02/24 History Allergies Allergy/AdvReac Type Severity Reaction Status Date / Time oxycodone Allergy Intermediate Hallucinati Verified 12/28/23 13:05 ng Exam Narrative: Exam Narrative: PHYSICAL EXAM General: Pleasant, conversant, NAD HEENT: Normocephalic, atraumatic, sclera white, EOMI, oral mucosa moist Cardiovascular: RRR, S1S2. No pitting edema Pulmonary: CTA bilaterally without rhonchi, rales, expiratory wheezes. No dyspnea Abdominal: Soft, nondistended, NTTP Neurological: Alert, answering questions appropriately, cranial nerves intact, no focal findings Extremities: No gross joint deformity or swelling. Postoperative dressing in place, dry. Neurovascularly intact Skin: Warm, dry. Const: Vital Signs, click to edit/add: Vital Signs - 24 hr 02/02/24 10:02 02/02/24 12:10 02/02/24 12:15 Temperature 97.9 F Pulse Rate 57 L 49 L 51 L Respiratory Rate 16 16 16 Blood Pressure 184/103 H 197/79 H 153/79 H Pulse Oximetry 96 97 94 Oxygen Delivery Me thod Room Air Nasal Cannula Nasal Cannula Oxygen Flow Rate 3 3 02/02/24 15:25 02/02/24 15:30 02/02/24 15:35 Temperature 97.7 F Pulse Rate 51 L 52 L 48 L Respiratory Rate 14 14 16 Blood Pressure 125/63 122/64 131/67 Pulse Oximetry 92 92 91 Oxygen Delivery Me thod Room Air Room Air Room Air Oxygen Flow Rate 02/02/24 15:40 02/02/24 15:45 02/02/24 15:50 Temperature Pulse Rate 52 L 50 L 46 L Respiratory Rate 16 16 16 Blood Pressure 144/73 H 150/77 H 141/71 H Pulse Oximetry 94 94 95 Oxygen Delivery Me thod Room Air Room Air Room Air Oxygen Flow Rate 02/02/24 15:55 02/02/24 16:00 02/02/24 16:05 Temperature 97.4 F L Pulse Rate 52 L 48 L 48 L Respiratory Rate 16 16 16 Blood Pressure 140/73 H 153/77 H 150/79 H Pulse Oximetry 95 95 96 Oxygen Delivery Me thod Room Air Room Air Room Air Oxygen Flow Rate Assessment and Plan Assessment and plan (1) Osteoarthritis of right knee: Problem comment: -POD#0 s/p right TKA -perioperative management including pain management and anticoagulation per Orthopedic surgery -encourage postoperative pulmonary hygiene -PT OT consults -plan to discharge home with family tomorrow Status: Acute (2) Type 2 diabetes mellitus: Problem comment: Patient will continue to use insulin pump Glucose checks ACHS Diabetic diet Status: Acute (3) Atrial fibrillation: Problem comment: On chronic anticoagulation Bradycardic postoperatively, 30-40s, improving to baseline 50s following arrival to floor Telemetry Continue metoprolol (tomorrow if appropriate) and apixaban Status: Acute (4) Hyperlipidemia: Problem comment: Continue statin Status: Acute (5) Hypertension: Problem comment: Continue losartan Status: Acute Plan Hospital Medicine will continue to follow as needed. Please contact our service with any questions. Total Time Spent Total Time Spent: Total time spent caring for the patient today was 45 minutes. This includes time spent for the visit reviewing the chart, time spent during the visit, time spent after the visit and documentation and planning in coordination of care.
[2024-02-02] MEDS: CEFAZOLIN 2 GM in 0.9 % SODIUM CHLORIDE Mini-bag 100 ML IVPB (18:16)
[2024-02-02] MEDS: 0.9 % SODIUM CHLORIDE 500 ML IV (21:16)
[2024-02-02] MEDS: HYDROmorphone 2 MG TABLET PO (21:17)
[2024-02-02] MEDS: SENNOSIDES 1 TAB TABLET 2 TAB PO (21:18)
[2024-02-02] MEDS: APIXABAN 5 MG TABLET PO (21:18)
[2024-02-03] MEDS: ACETAMINOPHEN 500 MG TABLET 1000 MG PO ×3 (00:47→12:25)
[2024-02-03] MEDS: CEFAZOLIN 2 GM in 0.9 % SODIUM CHLORIDE Mini-bag 100 ML IVPB (02:29)
[2024-02-03] MEDS: HYDROmorphone 0.5 mg/0.5 ml inj IVP ×2 (02:37→08:09)
[2024-02-03 02:40] VITALS: BP 180/78; PULSE 63; RESP 16; TEMP 36.1; O2SAT 97
[2024-02-03] MEDS: HYDROmorphone 2 MG TABLET PO (04:28)
--- NOTE | 2024-02-03 04:51 | PC.NURSE ---
Shift note: Pt is doing well ambulated with A1, walker and GB to from BR and hallway. Doing well with pain. Pain level rated 5. Alert and oriented. Pt had difficulty urinating from surgery. At 2100 bladder scan done was 198. N/S 500ml bolus given. Had 420ml of clear urine with deep yellow color. Lactated ringers was allowed to infused at 75ml/hour. Pt had another urine (350ml) at 0330. Dressing appeared clean and dry. Ice pack applied. Pt had difficulty sleeping. Tolerated regular diet well. No N/V, or abdominal discomfort observed. Systolic Bp was high above 170 in 3 occasions.
[2024-02-03 07:00] VITALS: BP 138/57; PULSE 65; RESP 18; TEMP 36.6; O2SAT 96
[2024-02-03 07:05] LABS: Hematocrit 41.1 % (37.0-53.0); Hemoglobin* 13.6 gm/dL (13.5-17.5); Immature Granulocytes Pct Auto 0.2 %; Lymphocytes Percent Auto 4.2 % (20-44); Mean Corpuscular HGB Conc 33 gm/dL (32-36); Mean Corpuscular Hemoglobin 28 pg (26-34); Mean Corpuscular Volume 84 fL (80-100); Monocytes Percent Auto 7.5 % (0.0-11.0); Neutrophils Percent Auto 88.1 % (42.0-72.0); Platelet Count* 213 K/uL (140-440); RDW Coefficient of Variation % 12.9 % (11.5-15.5); Red Blood Count 4.87 m/uL (4.30-5.90); White Blood Count* 13.29 K/uL (4.50-11.00)
[2024-02-03 07:14] LABS: INR 1.08 (0.91-1.10); Prothrombin Time 14.6 Seconds
[2024-02-03 07:18] LABS: Slide Review Reflex No
[2024-02-03 07:29] LABS: Potassium* 4.6 mmol/L (3.6-5.1); Sodium* 133 mmol/L (135-149)
[2024-02-03 07:32] LABS: Blood Urea Nitrogen* 25 mg/dL (7-30); Est. Creatinine Clearance* 76.04; Estimated Glomerular Filt Rate 84 ml/min
[2024-02-03] MEDS: SENNOSIDES 1 TAB TABLET 2 TAB PO (08:08)
[2024-02-03] MEDS: APIXABAN 5 MG TABLET PO (08:09)
[2024-02-03] MEDS: ASPIRIN 81 MG TABLET EC PO (08:09)
--- NOTE | 2024-02-03 09:07 | PM.ORPN ---
Subjective Subjective Time Seen by Provider: 07:30 Date Seen: 02/03/24 Principal diagnosis: Status post right knee replacement Interval history: Raman is comfortable at rest this morning. He will discharge to home today. Ortho Exam Narrative Exam Narrative: Alert and oriented x3. Patient is in no acute distress. Converses without labored breathing. Hearing is grossly intact. Ambulates with a walker. Examination of the right knee shows the dressing is intact. Mild effusion. Mild soft tissue edema. CMS intact right lower extremity. Bilateral calves are soft and nontender. Pretibial edema is present. Const Vital Signs, click to edit/add: Vital Signs - 24 hr 02/02/24 10:02 02/02/24 12:10 02/02/24 12:15 Temperature 97.9 F Pulse Rate 57 L 49 L 51 L Pulse Rate [Pulse Oximeter] Respiratory Rate 16 16 16 Blood Pressure 184/103 H 197/79 H 153/79 H Blood Pressure [Right Arm] Pulse Oximetry 96 97 94 Oxygen Delivery Method Room Air Nasal Cannula Nasal Cannula Oxygen Flow Rate 3 3 02/02/24 15:25 02/02/24 15:30 02/02/24 15:35 Temperature 97.7 F Pulse Rate 51 L 52 L 48 L Pulse Rate [Pulse Oximeter] Respiratory Rate 14 14 16 Blood Pressure 125/63 122/64 131/67 Blood Pressure [Right Arm] Pulse Oximetry 92 92 91 Oxygen Delivery Method Room Air Room Air Room Air Oxygen Flow Rate 02/02/24 15:40 02/02/24 15:45 02/02/24 15:50 Temperature Pulse Rate 52 L 50 L 46 L Pulse Rate [Pulse Oximeter] Respiratory Rate 16 16 16 Blood Pressure 144/73 H 150/77 H 141/71 H Blood Pressure [Right Arm] Pulse Oximetry 94 94 95 Oxygen Delivery Method Room Air Room Air Room Air Oxygen Flow Rate 02/02/24 15:55 02/02/24 16:00 02/02/24 16:05 Temperature 97.4 F L Pulse Rate 52 L 48 L 48 L Pulse Rate [Pulse Oximeter] Respiratory Rate 16 16 16 Blood Pressure 140/73 H 153/77 H 150/79 H Blood Pressure [Right Arm] Pulse Oximetry 95 95 96 Oxygen Delivery Method Room Air Room Air Room Air Oxygen Flow Rate 02/02/24 16:15 02/02/24 16:30 02/02/24 16:45 Temperature 95.1 F L Pulse Rate 52 L 39 L 53 L Pulse Rate [Pulse Oximeter] Respiratory Rate 14 14 Blood Pressure 149/87 H 173/87 H 179/73 H Blood Pressure [Right Arm] Pulse Oximetry 94 99 99 Oxygen Delivery Method Room Air Room Air Room Air Oxygen Flow Rate 02/02/24 17:00 02/02/24 17:15 02/02/24 17:30 Temperature 95.5 F L 95.8 F L Pulse Rate 40 L 41 L 40 L Pulse Rate [Pulse Oximeter] Respiratory Rate 14 16 Blood Pressure 175/97 H 137/90 H 166/75 H Blood Pressure [Right Arm] Pulse Oximetry 99 99 Oxygen Delivery Method Room Air Room Air Oxygen Flow Rate 02/02/24 18:00 02/02/24 19:00 02/02/24 20:00 Temperature 96.3 F L 96.4 F L 96.9 F L Pulse Rate 63 48 L 48 L Pulse Rate [Pulse Oximeter] Respiratory Rate 14 16 Blood Pressure 154/75 H 149/65 H 177/74 H Blood Pressure [Right Arm] Pulse Oximetry 98 95 95 Oxygen Delivery Method Room Air Room Air Room Air Oxygen Flow Rate 02/02/24 21:00 02/02/24 22:00 02/02/24 23:00 Temperature 96.9 F L 96.6 F L 96.9 F L Pulse Rate 47 L 49 L Pulse Rate [Pulse Oximeter] 44 L Respiratory Rate 16 16 16 Blood Pressure 176/72 H 187/78 H Blood Pressure [Right Arm] 189/75 H Pulse Oximetry 98 98 95 Oxygen Delivery Method Room Air Room Air Room Air Oxygen Flow Rate 3 02/03/24 02:40 02/03/24 07:00 02/03/24 07:00 Temperature 96.9 F L 97.9 F Pulse Rate Pulse Rate [Pulse Oximeter] 63 65 65 Respiratory Rate 16 18 18 Blood Pressure Blood Pressure [Right Arm] 180/78 H 138/57 L Pulse Oximetry 97 96 Oxygen Delivery Method Room Air Room Air Oxygen Flow Rate Assessment and Plan Assessment and plan (1) Status post right knee replacement: Problem details: Plan for discharge is today to home if they meet discharge criteria. DVT prophylaxis includes Eliquis and aspirin. He takes this regularly. Compression stockings as needed for swelling. Frequent ambulation, every hour throughout the day. Remove dressing in 1 week. Observe wound and phone Orthopedics with any questions or concerns Return to clinic in 1 week for a wound check Return to clinic in 6 weeks with surgeon Minimize narcotic use. Wean off and discontinue soon as possible. Activities as tolerated. No strenuous activity. Outpatient physical therapy as scheduled. Ice and elevate the operative extremity. No restriction on ice. He gets hallucinations from oxycodone, therefore hydromorphone/Dilaudid will be used. He is asked to take this minimally discontinue soon as he can. Status: Acute
[2024-02-03 11:00] VITALS: BP 159/81; PULSE 67; RESP 18; TEMP 36.6; O2SAT 97
--- NOTE | 2024-02-03 14:45 | PC.NURSE ---
Nursing discharge note: Pt A&O x4, afebrile and VSS today. Pt is Ax1 with gait belt & 2ww. First session with PT this morning, pt became dizzy & lightheaded walking in his room so it was cut short. BP and blood sugar were both stable. Pt received IV Dilaudid @ 0810 shortly before PT session. Dizziness improved throughout the day & gait improved. Pt blood sugars today 142 > 178; has his own insulin pump which was utilized so no SS insulin was given. Pt rating pain at 5-7/10 depending on pain med regimen. Scheduled Tylenol given per DEC. No BM today & no issues with urination. Right knee dressing C/D/I with ice pack in place. Noted 3+ pitting edema to RLE this morning so BHARGAV stockings were applied. PIV in left hand discontinued, catheter intact. Patient?s family was present during discharge teaching & they all verbalized understanding. Pt discharged home accompanied by family members via W/C @ [id number]. ?
== END 2024-02-03 12:40 | disposition home or self-care (01) ==
LOC: OR 09:28 → MEDSURG 09:31
PROVIDERS: PCP Family Medicine; Visit Provider Orthopaedic Surgery
PROC: (CPT 27447; principal; 2024-02-02 11:30)
DX: M17.11 Unilateral primary osteoarthritis, right knee (principal); G89.18 Other acute postprocedural pain; I97.191 Other postprocedural cardiac functional disturbances following other surgery; I25.10 Atherosclerotic heart disease of native coronary artery without angina pectoris; E11.9 Type 2 diabetes mellitus without complications; Z96.41 Presence of insulin pump (external) (internal); Z95.1 Presence of aortocoronary bypass graft; Z95.5 Presence of coronary angioplasty implant and graft; I48.91 Unspecified atrial fibrillation; Z79.01 Long term (current) use of anticoagulants; E78.5 Hyperlipidemia, unspecified; I45.6 Pre-excitation syndrome; Z68.35 Body mass index [BMI] 35.0-35.9, adult; E11.59 Type 2 diabetes mellitus with other circulatory complications; I48.0 Paroxysmal atrial fibrillation; I11.9 Hypertensive heart disease without heart failure
CPT/HCPCS: 27447; 01402; 36415; 64447; 64454; 73560; 76942; 82565; 82962; 84132; 84295; 84520; 85025; 85610; 97110; 97116; 97162; 97165; 97530; 97535; A9270; C1776; J0690; J1100; J1170; J2175; J2250; J2405; J2704; J2795; J3010; J7030; J7120

== ENCOUNTER 2025-01-20 06:51 | Day surgery (SDC) | payer OTHER, SELFPAY ==
[2025-01-20] VITALS (15 sets, daily range): BP systolic 105–174; BP diastolic 64–73; PULSE 50–63; RESP 12–25; TEMP 36.1–36.4; O2SAT 93–100; BMI 34.7
--- NOTE | 2025-01-20 07:25 | W.PM.H&PU ---
History & Physical Update History & Physical Update H&P Reviewed and patient assessed: No changes noted
--- NOTE | 2025-01-20 07:26 | P.ORPRC_ITS ---
Procedure Note Date of procedure: 01/20/25 Procedure: PREOPERATIVE DIAGNOSES: 1. Right shoulder rotator cuff tear. 2. Right shoulder subacromial impingement syndrome. 3. Right acromioclavicular joint osteoarthritis POSTOPERATIVE DIAGNOSES: 1. Right shoulder rotator cuff tear (upper subscapularis, supraspinatus, and infraspinatus) 2. Right shoulder subacromial bursitis and impingement syndrome. 3. Right shoulder glenoid chondromalacia 4. Right shoulder acromioclavicular joint osteoarthritis NAME OF OPERATION: 1. Right shoulder arthroscopic rotator cuff repair (upper subscapularis, supraspinatus, and infraspinatus). 2. Right shoulder arthroscopic extensive debridement (glenoid, anterior/superior/posterior labrum, subacromial bursa) 3. Right shoulder arthroscopic subacromial decompression/partial acromioplasty. 4. Right shoulder arthroscopic distal clavicle excision SURGEON: Giorgi Liu MD TYPO MACHINE OPERATOR: Radha Manning & Iraida Delgado P.A.-C.. An speech language pathologist assistant was critical for this case to aide in patient positioning, suture manipulation, arm positioning, instrument positioning, and closure. ANESTHESIA: General plus preoperative supraclavicular block. IMPLANTS: Arthrex 2.6 mm knotless FiberTak suture anchors x4; Arthrex 5.5 mm BioComposite knotless SwiveLock anchor x2 COMPLICATIONS: None ESTIMATED BLOOD LOSS: 10 mL INDICATIONS: The patient is a pleasant, 64 who has experienced right shoulder pain and weakness following injury to his shoulder approximately 1 month ago. Physical exam and imaging were consistent with an acute, retracted rotator cuff tear and osteoarthritis of the acromioclavicular joint.. Given these findings, recommendation was made for surgery to repair the rotator cuff and address the acromioclavicular joint osteoarthritis. FINDINGS: Exam under anesthesia revealed stable shoulder with full range of motion. The diagnostic arthroscopy revealed diffuse grade 2 grade 3 chondral changes of the glenoid, with normal appearing cartilage of the humeral head. There were 2 small intra-articular loose bodies, which were removed. There was diffuse degenerative tearing of the anterior, superior, his posterior superior labrum. The biceps anchor was intact, and intra-articular portion of the biceps tendon was normal in appearance. There was partial-thickness upper subscapularis tear with intact biceps sling. There was a large full-thickness tear involving the entire supraspinatus and infraspinatus which was retracted medially approximately 3-4 cm. Extensive thickened subacromial/subdeltoid bursitis with downsloping anterior acromion. Severe degenerative changes of the acromioclavicular joint. PROCEDURE: Following a thorough discussion of risks, benefits, and alternatives, consent was obtained and the operative shoulder was marked. A supraclavicular nerve block was performed by anesthesia staff in preop holding. The patient was brought to the operating room and placed supine on the operating table. Induction of anesthesia was completed, and patient was given IV Ancef preoperatively for prophylaxis. Patient was placed into the beach chair position. Head was placed in padded head baggage porter in neutral alignment, and all bony prominences were well padded. The operative shoulder and upper extremity were prepped and draped in the appropriate sterile fashion using ChloraPrep. A surgical time-out was performed confirming patient identity, surgical site, and procedure. Anterior, posterior, lateral portal sites were injected with 0.25% Marcaine with epinephrine. The glenohumeral joint was injected with 40 mL of normal saline using an 18g spinal needle from a posterior approach. Posterior portal was established. Anterior portal was established after localization with a spinal needle and a 7.0 mm cannula was placed here. Diagnostic arthroscopy was then performed with findings as noted above.. The shaver was then inserted and 2 small loose bodies were removed with the shaver. The shaver was then used to debride the anterior, superior, posterior superior labrum. Following debridement, biceps was probed and biceps anchor was confirmed to be stable. Remnant labrum was confirmed to be stable. Attention was then directed to the partial-thickness tear of the upper subsca pularis. The footprint of the upper subscapularis was debrided and lightly decorticated using the bone-cutting shaver. A knotless 2.6 mm FiberTak suture anchor was then placed into the medial upper border of the subscapularis footprint. The sutures were then passed through the upper border of the subscapularis using the OneRoofch suture Passer. Repair sutures were then tensioned securing the upper subscapularis back to its footprint. Remnant sutures were cut and removed. Subscapularis was probed and noted to be firmly reattached to its footprint. Camera was then moved into the subacromial space. A lateral portal was established after localization with spinal needle. There was noted be significant inflamed, thickened subacromial/subdeltoid bursal tissue. This tissue was debrided using combination of the arthroscopic shaver and radiofrequency ablator. Frayed edges of the rotator cuff were also debrided with the arthroscopic shaver. A partial acromioplasty was then performed using a 5.5 mm bur. A passport cannula was then placed into the lateral portal. The full-thickness tear of the supraspinatus infraspinatus was retracted medially 3-4 cm but was easily mobilized pulled back to its footprint. The footprint was then debrided of soft tissue using combination of the radiofrequency ablator and lightly decorticating using the bone-cutting shaver. After gentle decortication, 3 small stab incisions were made off the lateral aspect of the acromion. Through these incisions, three 2.6 mm knotless FiberTak suture anchors were placed into the medial aspect of the supraspinatus and infraspinatus footprint. After anchors were placed, a Avimotoion suture Passer was used to pass shuttling sutures through the rotator cuff lateral to the musculotendinous junction. Each set of sutures was passed independently. After all three sets of sutures had been passed, medial row repair was performed using the knotless sutures. A lateral row repair was then completed by placing two knotless BioComposite SwiveLock anchors lateral to the anterior and posterior footprint of the supraspinatus and infraspinatus. Each anchor incorporated a FiberTape from the previously passed medial row anchors. These sutures were tensioned and SwiveLock anchor was secured into position. The knotless sutures from each anchor were then used to reinforce the cuff anteriorly and posteriorly after passing the repair suture through the rotator cuff. After all sutures were tensioned remnant sutures were cut and removed. Medial row sutures for retention and remnant sutures were cut and removed. Shoulder was then placed through a range of motion, and rotator cuff was noted to be firmly attached back to its footprint. The rotator cuff was probed, and sutures were all well tensioned. Attention was then directed to the distal clavicle excision. A 70 degree scope was placed through the lateral portal. The acromioclavicular joint was debrided of soft tissue using the radiofrequency ablator. Distal clavicle excision was then performed using the 5.5 mm oziel removing approximately 1 cm bone from the distal clavicle. Using the 70 scope, complete distal clavicle excision was c onfirmed with no remnant bone between the acromion and distal clavicle posteriorly or superiorly. Excess fluid was drained from subacromial space, and all instruments and cannulas were removed. Surgical incisions were closed with 3-0 nylon simple interrupted sutures. Sterile dressing was applied followed by the application of an abduction sling. Patient was then rotated back to supine position, woken from anesthesia, and transferred to the recovery room in stable condition. PLAN: 1. Discharged to home day of surgery. 2. Ice for pain and swelling. 3. Tylenol and oral Dilaudid as needed for pain control. 4. Abduction sling at all times except for ROM and showering. -Remove sling several times daily for pendulum exercises finger, wrist, and elbow range of motion. 5. Follow-up in orthopedic clinic in 10-14 days for wound check and suture removal. 6. Will initiate formal physical therapy 2 weeks postoperatively per the standard rotator cuff repair protocol.
[2025-01-20] MEDS: LACTATED RINGERS 1000 ML 1,000 ML 100 ML IV (07:45)
[2025-01-20] MEDS: MIDAZOLAM HCL 1 MG/ML inj IVP (07:50)
[2025-01-20] MEDS: SODIUM CHLORIDE 0.9 % (FLUSH) 10 ML SYRINGE IVF (07:50)
[2025-01-20] MEDS: fentaNYL 100 MCG/2 ML inj IVP (07:50)
--- NOTE | 2025-01-20 08:16 | SUR.PREOP ---
TIME?OUT:?0750 PT/RN/MDA?VERIFICATION?OF?SURGICAL?SITE,?PROCEDURE,?AND?CONSENT OBTAINED?PRIOR?TO?INVASIVE?PROCEDURE.
--- NOTE | 2025-01-20 08:28 | W.PM.NB ---
Nerve Block Nerve Block Time Seen by Provider: 08:00 Date Seen: 01/20/25 Type of block requested by surgeon for post-operative analgesia: supraclavicular Side: right Time out performed: Yes Verification of patient name: Yes Verification of date of : Yes Site marking: site marked Name of person performing procedure: mkoch Continuous monitoring Was continuous monitoring of O2 sat, B/P, phototypesetting equipment monitor, recorded every 15 minutes?: Yes Procedure Checklist: sterile prep, needles and gloves Ultrasound guided. Images saved: Yes Medications given in 5ml increments after negative aspiration: Ropivicaine %: 0.5 mL: 20 Needle gauge: 20 Precedex (mcg): 25 Patient tolerated procedure well: Yes Block Charges Block Charge (with Pro Fee): Brachial Plexus Use of Ultrasound Machine for Block: Yes- US Guidance/pain block
[2025-01-20] MEDS: CEFAZOLIN 2 GM INJ IVP (08:33)
--- NOTE | 2025-01-20 08:39 | SUR.OPER ---
PATIENT QUESTIONS ANSWERED SATISFACTORILY PREOPERATIVELY. PATIENT BROUGHT TO OR #2 PER CART FOLLOWING THE BLOCK. Patient positioned supine on OR #2 bed for the intubation.? Perioperative team wrapped the?left arm in a neutral position on the pt. abdomen with the drawsheet.? Right arm elevated on an IV pole in a padded strap. Final approval of positioning by surgeon. CONTINUOUS IRRIGATION OF THE LEFT SHOULDER WITH MIXTURE OF 3000 NACL AND 1mg OF EPINEPHRINE DURING PROCEDURE.
[2025-01-20] MEDS: LIDOCAINE 1%-EPI 1:100,000 10 ML INFILTRATI (09:06)
[2025-01-20] MEDS: EPINEPHrine 1 MG in SODIUM CHLORIDE IRRIG SOLUTION 3,000 ML 3001 MG IRRIGATION ×8 (09:06→11:19)
--- NOTE | 2025-01-20 12:02 | P.ANES_ITS ---
Anesthesia Charges Start Date/Time Anesthesia Start Date: 01/20/25 Anesthesia Start Time: 08:19 Stop Date/Time Anesthesia Stop Date: 01/20/25 Anesthesia Stop Time: 11:03 Coding CPT Codes CPT Codes: ANESTH SURGERY OF SHOULDER - 40849 ([id number]) P3 - PATIENT W/SEVERE SYS DISEASE, QZ - GROUT WORKER SVC W/O SUPERVISOR PHOTOCOMPOSITION BY
--- NOTE | 2025-01-20 12:02 | W.ANESCHARGE ---
Anesthesia Charges Start Date/Time Anesthesia Start Date: 01/20/25 Anesthesia Start Time: 08:19 Stop Date/Time Anesthesia Stop Date: 01/20/25 Anesthesia Stop Time: 11:03 Coding CPT Codes CPT Codes: ANESTH SURGERY OF SHOULDER - 55485 ([id number]) P3 - PATIENT W/SEVERE SYS DISEASE, QZ - INCOME TAX ADVISOR SVC W/O CHECK OUT CASHIER BY
--- NOTE | 2025-01-20 12:33 | SUR.PHASEI ---
patient met discharge criteria per anesthesia
[2025-01-20] MEDS: ACETAMINOPHEN 325 MG TABLET PO (13:10)
== END 2025-01-20 14:35 | disposition home or self-care (01) ==
PROVIDERS: PCP Family Medicine; Visit Provider Orthopaedic Surgery
PROC: (CPT 29805; principal; 2025-01-20 08:15)
DX: S46.011A Strain of muscle(s) and tendon(s) of the rotator cuff of right shoulder, initial encounter (principal); M75.41 Impingement syndrome of right shoulder; M19.011 Primary osteoarthritis, right shoulder; M75.51 Bursitis of right shoulder; M94.211 Chondromalacia, right shoulder; S43.431A Superior glenoid labrum lesion of right shoulder, initial encounter; G89.18 Other acute postprocedural pain; I48.0 Paroxysmal atrial fibrillation; Z79.01 Long term (current) use of anticoagulants; E11.9 Type 2 diabetes mellitus without complications; Z96.41 Presence of insulin pump (external) (internal); Z79.4 Long term (current) use of insulin; I11.9 Hypertensive heart disease without heart failure
CPT/HCPCS: 29827; 29826; 29824; 29823; 01630; 64415; 76942; 81025; 82962; A9270; C1713; J0171; J0330; J0690; J1100; J2250; J2371; J2405; J2704; J2710; J2795; J3010; J7120; L3670